=== PATIENT | male | born 1955 | race American Indian/Alaskan Native ===

== ENCOUNTER 2018-06-11 16:37 | Inpatient (IN) | payer OTHER ==
[2018-06-11 17:01] VITALS: BMI 22.4
[2018-06-11] MEDS ORDERED: SODIUM CHLORIDE 0.9% 1000 ML INFUS.BAG IV ONE (17:04)
[2018-06-11 17:09] LABS: PH,URINE 5.5 (4.5-8); URINE APPEARANCE Clear; URINE BILIRUBIN Negative (NEGATIVE); URINE COLOR Yellow; URINE GLUCOSE (UA) Negative (NEGATIVE); URINE KETONE Trace (NEGATIVE); URINE LEUK ESTERASE TRACE (NEGATIVE); URINE NITRITE Negative (NEGATIVE); URINE PROTEIN Trace (NEGATIVE); URINE UROBILINOGEN 0.2 (0.2-1.0)
--- NOTE | 2018-06-11 17:16 | PDOC ---
History of Present Illness - General History Source: Patient Exam Limitations: No Limitations - History of Present Illness Initial Comments: 06/11/18 17:27 The patient is a 63 year old male, with no significant PMH, who presents to the emergency department with right flank pain that began yesterday. The patient states constant sharp pain began in the right lower quadrant that radiates to the right flank, no relief with Motrin. The patient states he endorses associated symptoms of nausea and subjective fever. The patient reports sciatica in 2010 and mentions he had a kidney stone many years ago. The patient denies any abdominal surgery. The patient denies chest pain, shortness of breath, headache and dizziness. Denies chills vomit, diarrhea and constipation.Denies dysuria, frequency, urgency and hematuria. Allergies: NKDA Past surgical history: None reported Social history: None reported PCP: Marco Rogers <Tanya France - Last Filed: 06/11/18 17:27> - General History Source: Patient Exam Limitations: No Limitations <Shea Pineda - Last Filed: 06/11/18 19:25> <Gisselle Heard - Last Filed: 06/11/18 22:55> - General Chief Complaint: Pain Stated Complaint: RIGHT FLANK PAIN Time Seen by Provider: 06/11/18 16:50 Past History <Tanya France - Last Filed: 06/11/18 17:27> - Past Medical History COPD: No Kidney Stones: Yes - Suicide/Smoking/Psychosocial Hx Smoking History: Never smoked Hx Alcohol Use: No Drug/Substance Use Hx: No Substance Use Type: None <Shea Pineda - Last Filed: 06/11/18 19:25> <Gisselle Heard - Last Filed: 06/11/18 22:55> - Past Medical History Allergies/Adverse Reactions: Allergies Allergy/AdvReac Type Severity Reaction Status Date / Time No Known Allergies Allergy Verified 06/11/18 16:39 Home Medications: Ambulatory Orders Ibuprofen [Advil -] 200 mg PO ONCE 06/11/18 Review of Systems - Review of Systems Able to Perform ROS?: Yes Comments:: 06/11/18 17:29 GENERAL/CONSTITUTIONAL: No fever or chills. No weakness. HEAD, EYES, EARS, NOSE AND THROAT: No change in vision. No ear pain or discharge. No sore throat. CARDIOVASCULAR: No chest pain or shortness of breath. RESPIRATORY: No cough, wheezing, or hemoptysis. GASTROINTESTINAL:+RLQ pain. GENITOURINARY: No dysuria, frequency, or change in urination. MUSCULOSKELETAL: +Right flank pain. SKIN: No rash NEUROLOGIC: No headache, vertigo, loss of consciousness, or change in strength/ sensation. ENDOCRINE: No increased thirst. No abnormal weight change. HEMATOLOGIC/LYMPHATIC: No anemia, easy bleeding, or history of blood clots. ALLERGIC/IMMUNOLOGIC: No hives or skin allergy. <Tanya France - Last Filed: 06/11/18 17:27> *Physical Exam - Vital Signs Last Vital Signs Temp Pulse Resp BP Pulse Ox 98.7 F 58 L 15 98/67 100 06/11/18 16:38 06/11/18 16:38 06/11/18 16:38 06/11/18 16:38 06/11/18 16:38 - Physical Exam Comments: 06/11/18 17:31 GENERAL: Awake, alert, and fully oriented, in no acute distress HEAD: No signs of trauma EYES: PERRLA, EOMI, sclera anicteric, conjunctiva clear ENT: Auricles normal inspection, hearing grossly normal, nares patent, oropharynx clear without exudates. Moist mucosa NECK: Normal ROM, supple, no lymphadenopathy, JVD, or masses LUNGS: Breath sounds equal, clear to auscultation bilaterally. No wheezes, and no crackles HEART: Regular rate and rhythm, normal S1 and S2, no murmurs, rubs or gallops ABDOMEN: +RLQ pain and CVA tenderness. EXTREMITIES: Normal range of motion, no edema. No clubbing or cyanosis. No cords, erythema, or tenderness NEUROLOGICAL: Cranial nerves II through XII grossly intact. Normal speech, normal gait SKIN: Warm, Dry, normal turgor, no rashes or lesions noted. <Tanya France - Last Filed: 06/11/18 17:27> - Vital Signs Last Vital Signs Temp Pulse Resp BP Pulse Ox 98.7 F 58 L 15 98/67 100 06/11/18 16:38 06/11/18 16:38 06/11/18 16:38 06/11/18 16:38 06/11/18 16:38 <Cirilli,Shea - Last Filed: 06/11/18 19:25> - Vital Signs Last Vital Signs Temp Pulse Resp BP Pulse Ox 98.7 F 58 L 15 98/67 100 06/11/18 16:38 06/11/18 16:38 06/11/18 16:38 06/11/18 16:38 06/11/18 16:38 <Gisselle Heard - Last Filed: 06/11/18 22:55> ED Treatment Course - ADDITIONAL ORDERS Additional order review: Laboratory Results 06/11/18 16:50 Urine Color Yellow Urine Appearance Clear Urine pH 5.5 Ur Specific [place] 1.025 Urine Protein Trace Urine Glucose (UA) Negative Urine Ketones Trace Urine Blood 3+ H Urine Nitrite Negative Urine Bilirubin Negative Urine Urobilinogen 0.2 Ur Leukocyte Esterase Trace H <Tanya France - Last Filed: 06/11/18 17:27> - LABORATORY CBC & Chemistry Diagram: 06/11/18 17:40 06/11/18 17:40 - ADDITIONAL ORDERS Additional order review: Laboratory Results 06/11/18 16:50 Urine Color Yellow Urine Appearance Clear Urine pH 5.5 Ur Specific [place] 1.025 Urine Protein Trace Urine Glucose (UA) Negative Urine Ketones Trace Urine Blood 3+ H Urine Nitrite Negative Urine Bilirubin Negative Urine Urobilinogen 0.2 Ur Leukocyte Esterase Trace H - RADIOLOGY Radiology Studies Ordered: Category Date Time Status SPIRAL- RENAL-STONE CT [CT] Stat CT Scan 06/11/18 17:04 Ordered <Shea Pineda - Last Filed: 06/11/18 19:25> - LABORATORY CBC & Chemistry Diagram: 06/11/18 17:40 06/11/18 17:40 - ADDITIONAL ORDERS Additional order review: Laboratory Results 06/11/18 06/11/18 17:40 16:50 Sodium 136 Potassium 3.8 Chloride 101 Carbon Dioxide 27 Anion Gap 8 BUN 17 Creatinine 1.5 H Creat Clearance w eGFR 47.12 Random Glucose 90 Calcium 8.7 Total Bilirubin 0.7 AST 20 ALT 14 Alkaline Phosphatase 63 Total Protein 6.0 L Albumin 3.7 Urine Color Yellow Urine Appearance Clear Urine pH 5.5 Ur Specific [place] 1.025 Urine Protein Trace Urine Glucose (UA) Negative Urine Ketones Trace Urine Blood 3+ H Urine Nitrite Negative Urine Bilirubin Negative Urine Urobilinogen 0.2 Ur Leukocyte Esterase Trace H Urine RBC 10-20 Urine WBC 5-10 Ur Epithelial Cells Few 06/11/18 17:40 RBC 5.04 MCV 80.7 MCHC 32.2 RDW 12.7 MPV 10.1 Neutrophils % 69.6 Lymphocytes % 20.7 Monocytes % 8.0 Eosinophils % 1.2 Basophils % 0.5 - Medications Given in the ED: ED Medications Discontinued Medications Generic Name Dose Route Start Last Admin Trade Name Krystian PRN Reason Stop Dose Admin Ketorolac Tromethamine 15 mg 06/11/18 17:41 06/11/18 17:45 Toradol Injection - IVPUSH 06/11/18 17:42 15 mg ONCE ONE Administration Sodium Chloride 1,000 ml 06/11/18 17:04 06/11/18 17:40 Normal Saline - IV 06/11/18 17:05 1,000 ml ONCE ONE Administration <Gisselle Heard - Last Filed: 06/11/18 22:55> Medical Decision Making - Medical Decision Making 06/11/18 17:15 63 yo male with h/o renal colic her today with c/o right flank pain radiating to groin and rlq. no hematuria or dysuria. differential renal colic, uti pyelo. appendix less likely on character of his pain. plan ct a/p labs ua ivf. pt declined pain medicine currently took motrin earlier to day. <Shea Pineda - Last Filed: 06/11/18 19:25> - Medical Decision Making 06/11/18 19:49 Patient Name: GERALDO CALDERON THIS IS A PRELIMINARY REPORT FROM [facility] EXAM: CT abdomen and pelvis without contrast IMAGES:[id number] DATE OF EXAM: 2018-06-11 18:19:00 REASON FOR EXAM: Right flank pain COMPARISON: None Findings: Atelectasis and scarring are noted in the lung bases. No pleural effusions. There is a small hiatal hernia. There is questionable subtle gallbladder wall edema. The liver, pancreas, adrenal glands, and spleen are grossly unremarkable. *Mild right hydronephrosis due to a 10 mm x 7 mm x 11 mm calculus in the proximal right ureter at the level of L3. A few tiny right intrarenal calculi. No AAA. No evidence for diverticulitis, appendicitis, small bowel obstruction, free fluid, or free air. Small left inguinal hernia containing fat. Mild prostate enlargement. 06/11/18 22:55 Pt admitted to the hospitalist, who covers PMD [place]. <Gisselle Heard - Last Filed: 06/11/18 22:55> *DC/Admit/Observation/Transfer - Attestations Scribe Attestion: 06/11/18 17:34 Documentation prepared by Tanya France, acting as senior medical billing specialist for Shea Pineda MD. <Tanya France - Last Filed: 06/11/18 17:27> <Shea Pineda - Last Filed: 06/11/18 19:25> - Discharge Dispostion Decision to Admit order: Yes <Gisselle Heard - Last Filed: 06/11/18 22:55> Diagnosis at time of Disposition: Hydroureter, Renal insufficiency, Kidney stone on right side - Discharge Dispostion Condition at time of disposition: Guarded
[2018-06-11] MEDS ORDERED: KETOROLAC TROMETHAMINE 15 MG/ML VIAL IVPUSH ONE (17:41)
[2018-06-11] MEDS ORDERED: KETOROLAC TROMETHAMINE 15 MG/ML VIAL ONE (17:44)
[2018-06-11 17:48] LABS: EPI CELLS FEW /HPF
[2018-06-11 18:01] LABS: BASO % 0.5 % (0-2.0); EOS % 1.2 % (0-4.5); HEMATOCRIT 40.7 % (35.4-49); HEMOGLOBIN 13.1 GM/dl (11.7-16.9); LYMPH % 20.7 % (8-40); MCHC 32.2 g/dl (32.0-35.9); MEAN CELL VOLUME 80.7 fl (80-96); MEAN PLT VOLUME 10.1 fl (7.5-11.1); NEUT % 69.6 % (42.8-82.8); PLATELET COUNT 160 K/MM3 (134-434); RBC 5.04 M/mm3 (4.00-5.60); RDW 12.7 % (11.9-15.9); WHITE BLOOD COUNT 8.8 K/mm3 (4.0-10.8)
[2018-06-11 18:16] LABS: ALBUMIN 3.7 g/dl (3.5-5.0); ALK PHOS 63 U/L (32-92); ANION GAP 8 MMOL/L (8-16); BILIRUBIN,TOTAL 0.7 mg/dl (0.2-1.0); BLOOD UREA NITROGEN 17 mg/dl (7-18); CALCIUM 8.7 mg/dl (8.4-10.2); CHLORIDE 101 mmol/L (98-107); CO2 27 mmol/L (22-28); CREATININE 1.5 mg/dl (0.6-1.3); GLUCOSE,RANDOM 90 mg/dl (74-106); POTASSIUM 3.8 mmol/L (3.5-5.1); SGOT/AST 20 U/L (10-42); SGPT/ALT 14 U/L (10-40); SODIUM 136 mmol/L (136-145)
--- NOTE | 2018-06-11 20:48 | HP ---
CHIEF COMPLAINT: Flank pain PCP: Marco HISTORY OF PRESENT ILLNESS: This is a 63 year old male with a significant past medical history of renal colic who presented to the ED with c/o right flank pain radiating to his RLQ/ groin area. He denies N/V/D. Pain resolved after toradol IV in ED. ER course was notable for: (1) CT with [id number] calculus R proximal ureter (2) WBC 8.8 (3) u/a with 3+ blood, 10-20 RBC, 5-10 WBC and tr leuk esterase Recent Travel: pt denies PAST MEDICAL HISTORY: renal colic, sciatic PAST SURGICAL HISTORY: pt denies Social History: Smoking: pt denies Alcohol: pt denies Drugs: pt denies Family History: mother [place] father with balance issues sister , lung [place] son , [place] Allergies No Known Allergies Allergy (Verified 06/11/18 16:39) HOME MEDICATIONS: 3 Medication Instructions Recorded Ibuprofen [Advil -] 200 mg PO ONCE 06/11/18 REVIEW OF SYSTEMS CONSTITUTIONAL: Absent: fever, chills, diaphoresis, generalized weakness, malaise, loss of appetite, weight change HEENT: Absent: rhinorrhea, nasal congestion, throat pain, throat swelling, difficulty swallowing, mouth swelling, ear pain, eye pain, visual changes CARDIOVASCULAR: Absent: chest pain, syncope, palpitations, irregular heart rate, lightheadedness , peripheral edema RESPIRATORY: Absent: cough, shortness of breath, dyspnea with exertion, orthopnea, wheezing, stridor, hemoptysis GASTROINTESTINAL: Present: RLQ abdominal pain Absent: abdominal distension, nausea, vomiting, diarrhea, constipation, melena, hematochezia GENITOURINARY: Present: flank pain Absent: dysuria, frequency, urgency, hesitancy, hematuria, genital pain MUSCULOSKELETAL: Absent: myalgia, arthralgia, joint swelling, back pain, neck pain SKIN: Absent: rash, itching, pallor HEMATOLOGIC/IMMUNOLOGIC: Absent: easy bleeding, easy bruising, lymphadenopathy, frequent infections ENDOCRINE: Absent: unexplained weight gain, unexplained weight loss, heat intolerance, cold intolerance NEUROLOGIC: Absent: headache, focal weakness or paresthesias, dizziness, unsteady gait, seizure, mental status changes, bladder or bowel incontinence PSYCHIATRIC: Absent: anxiety, depression, suicidal or homicidal ideation, hallucinations. PHYSICAL EXAMINATION Vital Signs - 24 hr 3 06/11/18 16:38 Temperature 98.7 F Pulse Rate 58 L Respiratory 15 Rate Blood Pressure 98/67 O2 Sat by Pulse 100 Oximetry (%) GENERAL: Awake, alert, and fully oriented, in no acute distress. HEAD: Normal with no signs of trauma. EYES: Pupils equal, round and reactive to light, extraocular movements intact, sclera anicteric, conjunctiva clear. No lid lag. EARS, NOSE, THROAT: Ears normal, nares patent, oropharynx clear without exudates. Moist mucous membranes. NECK: Normal range of motion, supple without lymphadenopathy, JVD, or masses. LUNGS: Breath sounds equal, clear to auscultation bilaterally. No wheezes, and no crackles. No accessory muscle use. HEART: Regular rate and rhythm, normal S1 and S2 without murmur, rub or gallop. ABDOMEN: Soft, nontender, not distended, normoactive bowel sounds, no guarding, no rebound, no masses. No hepatomegaly or splenomegaly. MUSCULOSKELETAL: Normal range of motion at all joints. No bony deformities or tenderness. No CVA tenderness. UPPER EXTREMITIES: 2+ pulses, warm, well-perfused. No cyanosis. No clubbing. No peripheral edema. LOWER EXTREMITIES: 2+ pulses, warm, well-perfused. No calf tenderness. No peripheral edema. NEUROLOGICAL: Cranial nerves II-XII intact. Normal speech. Normal gait. PSYCHIATRIC: Cooperative. Good eye contact. Appropriate mood and affect. SKIN: Warm, dry, normal turgor, no rashes or lesions noted, normal capillary refill. Laboratory Results - last 24 hr 3 06/11/18 06/11/18 06/11/18 16:50 17:40 17:40 WBC 8.8 RBC 5.04 Hgb 13.1 Hct 40.7 MCV 80.7 MCH 26.0 MCHC 32.2 RDW 12.7 Plt Count 160 MPV 10.1 Absolute Neuts (auto) 6.2 Neutrophils % 69.6 Lymphocytes % 20.7 Monocytes % 8.0 Eosinophils % 1.2 Basophils % 0.5 Sodium 136 Potassium 3.8 Chloride 101 Carbon Dioxide 27 Anion Gap 8 BUN 17 Creatinine 1.5 H Creat Clearance w eGFR 47.12 Random Glucose 90 Calcium 8.7 Total Bilirubin 0.7 AST 20 ALT 14 Alkaline Phosphatase 63 Total Protein 6.0 L Albumin 3.7 Urine Color Yellow Urine Appearance Clear Urine pH 5.5 Ur Specific [place] 1.025 Urine Protein Trace Urine Glucose (UA) Negative Urine Ketones Trace Urine Blood 3+ H Urine Nitrite Negative Urine Bilirubin Negative Urine Urobilinogen 0.2 Ur Leukocyte Esterase Trace H Urine RBC 10-20 Urine WBC 5-10 Ur Epithelial Cells Few Radiology Reports CT Abd/pelvis, w/o contrast DATE OF EXAM: 2018-06-11 18:19:00 REASON FOR EXAM: Right flank pain COMPARISON: None THIS IS A PRELIMINARY REPORT FROM [facility] Findings: Atelectasis and scarring are noted in the lung bases. No pleural effusions. There is a small hiatal hernia. There is questionable subtle gallbladder wall edema. The liver, pancreas, adrenal glands, and spleen are grossly unremarkable. *Mild right hydronephrosis due to a 10 mm x 7 mm x 11 mm calculus in the proximal right ureter at the level of L3. A few tiny right intrarenal calculi. No AAA. No evidence for diverticulitis, appendicitis, small bowel obstruction, free fluid, or free air. Small left inguinal hernia containing fat. Mild prostate enlargement. THIS DOCUMENT HAS BEEN ELECTRONICALLY SIGNED Anibal Santizo MD 06/11/2018 19:39 EST ASSESSMENT/PLAN: 63yM with PMH renal colic, sciatica presented to the ED with right flank and RLQ pain. Renal colic - 11mm, likely will not pass on its own - urology consult, will discuss with day [employer] in AM - defer further NSAID use given Cr 1.5 - oxycodone PRN probable RAFITA - unknown baseline Cr, but likely previously WNL given lack of medical problems - IVF given in ED, pt tolerating po, cont po - likely due to obstruction due to stone (mild R hydronephrosis) DVT PPX - fully ambulatory, anticipated LOS <48h, defer heparin FEN - tolerating po - BMP in am - regular diet as tolerated Dispo: Pt currently requires further observation for management of her emergent condition. Visit type - Emergency Visit Emergency Visit: Yes ED Registration Date: 06/11/18 Care time: The patient presented to the Emergency Department on the above date and was hospitalized for further evaluation of their emergent condition. - New Patient This patient is new to me today: Yes Date on this admission: 06/11/18 - Critical Care Critical Care patient: No
[2018-06-11] MEDS ORDERED: ACETAMINOPHEN 325 MG TABLET (FP) PO PRN (20:53)
[2018-06-11] MEDS ORDERED: oxyCODONE HCL 5 MG TABLET PO PRN (20:53)
[2018-06-12 08:31] LABS: ANION GAP 4 MMOL/L (8-16); BLOOD UREA NITROGEN 15 mg/dl (7-18); CALCIUM 8.4 mg/dl (8.4-10.2); CHLORIDE 107 mmol/L (98-107); CO2 27 mmol/L (22-28); CREATININE 1.3 mg/dl (0.6-1.3); GLUCOSE,RANDOM 94 mg/dl (74-106); MAGNESIUM 2.1 mg/dL (1.8-2.4); PHOSPHOROUS 3.5 mg/dl (2.5-4.6); POTASSIUM 4.3 mmol/L (3.5-5.1); SODIUM 138 mmol/L (136-145)
--- NOTE | 2018-06-12 08:41 | PN ---
Physical Exam: SUBJECTIVE: Patient seen and examined, patient denies any pain, tolerating diet OBJECTIVE: patient is a 63 y/o male with a past medical history of renal colic (20 years ago) and sciatica. Patient was admitted from the emergency department to observation for obstructive uropathy secondary to urethral calculi. Vital Signs Period Temp Pulse Resp BP Sys/Salazar Pulse Ox Last 24 Hr 98 F-98.7 F 58-67 15-18 98-110/62-69 98-100 GENERAL: The patient is awake, alert, and fully oriented, in no acute distress. HEAD: Normal with no signs of trauma. EYES: PERRL, extraocular movements intact, sclera anicteric, conjunctiva clear. No ptosis. ENT: Ears normal, nares patent, oropharynx clear without exudates, moist mucous membranes. NECK: Trachea midline, full range of motion, supple. LUNGS: Breath sounds equal, clear to auscultation bilaterally, no wheezes, no crackles, no accessory muscle use. HEART: Regular rate and rhythm, S1, S2 without murmur, rub or gallop. ABDOMEN: Soft, nontender, nondistended, normoactive bowel sounds, no guarding, no rebound, no hepatosplenomegaly, no masses. EXTREMITIES: 2+ pulses, warm, well-perfused, no edema. NEUROLOGICAL: Cranial nerves II through XII grossly intact. Normal speech, gait not observed. PSYCH: Normal mood, normal affect. SKIN: Warm, dry, normal turgor, no rashes or lesions noted Laboratory Results - last 24 hr CBC WBC 7.0 K/mm3 (4.0-10.0) 06/12/18 07:45 RBC 5.02 M/mm3 (4.00-5.60) 06/12/18 07:45 Hgb 12.7 GM/dL (11.7-16.9) 06/12/18 07:45 Hct 39.2 % (35.4-49) 06/12/18 07:45 MCV 78.1 fl (80-96) L 06/12/18 07:45 MCH 25.3 pg (25.7-33.7) L 06/12/18 07:45 MCHC 32.5 g/dl (32.0-35.9) 06/12/18 07:45 RDW 13.7 % (11.9-15.9) 06/12/18 07:45 Plt Count 141 K/MM3 (134-434) 06/12/18 07:45 MPV 10.1 fl (7.5-11.1) 06/12/18 07:45 Absolute Neuts (auto) 4.0 K/mm3 (1.5-8.0) 06/12/18 07:45 Neutrophils % 58.0 % (42.8-82.8) 06/12/18 07:45 Lymphocytes % 28.0 % (8-40) 06/12/18 07:45 Monocytes % 10.3 % (3.8-10.2) H 06/12/18 07:45 Eosinophils % 3.1 % (0-4.5) 06/12/18 07:45 Basophils % 0.6 % (0-2.0) 06/12/18 07:45 Nucleated RBC % 0 % (0-0) 06/12/18 07:45 CMP Sodium 138 mmol/L (136-145) 06/12/18 07:45 Potassium 4.3 mmol/L (3.5-5.1) 06/12/18 07:45 Chloride 107 mmol/L (98-107) 06/12/18 07:45 Carbon Dioxide 27 mmol/L (22-28) 06/12/18 07:45 Anion Gap 4 MMOL/L (8-16) L 06/12/18 07:45 BUN 15 mg/dl (7-18) 06/12/18 07:45 Creatinine 1.3 mg/dl (0.6-1.3) 06/12/18 07:45 Creat Clearance w eGFR 55.58 (>60) 06/12/18 07:45 Random Glucose 94 mg/dl (74-106) 06/12/18 07:45 Calcium 8.4 mg/dl (8.4-10.2) 06/12/18 07:45 Phosphorus 3.5 mg/dl (2.5-4.6) 06/12/18 07:45 Magnesium 2.1 mg/dL (1.8-2.4) 06/12/18 07:45 Total Bilirubin 0.7 mg/dl (0.2-1.0) 06/11/18 17:40 AST 20 U/L (10-42) 06/11/18 17:40 ALT 14 U/L (10-40) 06/11/18 17:40 Alkaline Phosphatase 63 U/L (32-92) 06/11/18 17:40 Total Protein 6.0 g/dl (6.4-8.3) L 06/11/18 17:40 Albumin 3.7 g/dl (3.5-5.0) 06/11/18 17:40 Active Medications Generic Name Dose Route Start Last Admin Trade Name Freq PRN Reason Stop Dose Admin Acetaminophen 650 mg 06/11/18 20:53 Tylenol - PO Q4H PRN PAIN LEVEL 1-5 Oxycodone HCl 5 mg 06/11/18 20:53 Roxicodone - PO Q4H PRN PAIN LEVEL 6-[address] scan of abd/pelvis: 1cm right proximal uretral calculs with moderate hydronephrosis ASSESSMENT/PLAN: 1) obstructive uropathy secondary to calculus moderate hydronephrosis - continue ivf, strain all urine - start empirc abx, rocephin pending urine culture - prn pain medication - creatine trending downward, close following - appreciate urology input DVT PPX - fully ambulatory, anticipated LOS <48h, defer heparin FEN - tolerating po - BMP in am - regular diet as tolerated Dispo: Pt currently requires further observation for management of her emergent condition. Visit type - Emergency Visit Emergency Visit: Yes ED Registration Date: 06/14/18 Care time: The patient presented to the Emergency Department on the above date and was hospitalized for further evaluation of their emergent condition. - New Patient This patient is new to me today: No - Critical Care Critical Care patient: No - Discharge Referral Referred to [facility] No
[2018-06-12 09:16] LABS: BASO % 0.6 % (0-2.0); EOS % 3.1 % (0-4.5); HEMATOCRIT 39.2 % (35.4-49); HEMOGLOBIN 12.7 GM/dL (11.7-16.9); MCH 25.3 pg (25.7-33.7); MCHC 32.5 g/dl (32.0-35.9); MEAN CELL VOLUME 78.1 fl (80-96); MEAN PLT VOLUME 10.1 fl (7.5-11.1); MONO % 10.3 % (3.8-10.2); PLATELET COUNT 141 K/MM3 (134-434); RBC 5.02 M/mm3 (4.00-5.60); RDW 13.7 % (11.9-15.9)
[2018-06-12] MEDS: SODIUM CHLORIDE 1,000 ML IV SCH (09:59)
[2018-06-12] MEDS ORDERED: TAMSULOSIN HCL 0.4 MG CAP PO ONE (12:00)
[2018-06-12] MEDS: CEFTRIAXONE 1 GM/50 ML BAG IVPB SCH (15:29)
--- NOTE | 2018-06-12 17:21 | CON.GU ---
Consult Consult Specialty:: urology Reason for Consultation:: right ureteral stone with JADE and hydronephrosis with colic - History of Present Illness Chief Complaint: right ureteral stone History of Present Illness: Patient is a 63 year old male with history of urolithiasis who developed right colic. Patient also had significant nausea. Patient denies fever of chills, dysuria, or gross hematuria. - History Source History Provided By: Patient, Medical Record Limitations to Obtaining History: No Limitations - Alcohol/Substance Use Hx Alcohol Use: No - Smoking History Smoking history: Never smoked Home Medications - Allergies Allergies/Adverse Reactions: Allergies Allergy/AdvReac Type Severity Reaction Status Date / Time No Known Allergies Allergy Verified 06/11/18 16:39 - Home Medications Home Medications: Ambulatory Orders Ibuprofen [Advil -] 200 mg PO ONCE 06/11/18 Physical Exam- Vital Signs: Vital Signs Temperature 98.3 F 06/12/18 14:00 Pulse Rate 91 H 06/12/18 14:00 Respiratory Rate 18 06/12/18 14:00 Blood Pressure 103/66 06/12/18 14:00 O2 Sat by Pulse Oximetry (%) 96 06/12/18 14:00 Constitutional: Yes: Well Nourished, No Distress, Calm Eyes: Yes: WNL, Conjunctiva Clear, EOM Intact HENT: Yes: WNL, Atraumatic, Normocephalic Neck: Yes: WNL, Supple, Trachea Midline Cardiovascular: Yes: WNL, Regular Rate and Rhythm Respiratory: Yes: WNL, Regular Gastrointestinal: Yes: Normal Bowel Sounds, Soft Renal/: Yes: CVA Tenderness - Right Kidneys: Yes: FLank Pain Right Pelvis: Yes: WNL, Bladder Non Palpable Testicles: Yes: WNL Scrotum: Yes: WNL Penis: Yes: WNL Prostate Exam: Yes: Asymmetrical Musculoskeletal: Yes: WNL Extremities: Yes: WNL Labs: CBC, BMP 06/12/18 07:45 06/12/18 07:45 Imaging - Results Cat Scan: Report Reviewed Assessment/Plan impression right sided renal colic acute renal insufficiency right ureteral stone with hydronephrosis plan will schedule a right ureteroscopic laser lithotripsy thank you for the consultation 25 minutes devoted to patient care discussed with patient's daughter who is an OR nurse in [facility] [place]
[2018-06-13 08:25] LABS: BASO % 0.5 % (0-2.0); EOS % 3.4 % (0-4.5); HEMATOCRIT 38.1 % (35.4-49); HEMOGLOBIN 12.9 GM/dl (11.7-16.9); LYMPH % 23.3 % (8-40); MCH 27.1 pg (25.7-33.7); MCHC 33.8 g/dl (32.0-35.9); MEAN CELL VOLUME 80.3 fl (80-96); MEAN PLT VOLUME 10.6 fl (7.5-11.1); NEUT % 63.8 % (42.8-82.8); PLATELET COUNT 168 K/MM3 (134-434); RBC 4.74 M/mm3 (4.00-5.60); RDW 12.8 % (11.9-15.9); WHITE BLOOD COUNT 7.3 K/mm3 (4.0-10.8)
[2018-06-13] MEDS ORDERED: TAMSULOSIN HCL 0.4 MG CAP PO SCH (08:30)
[2018-06-13 08:35] LABS: ALBUMIN 3.2 g/dl (3.5-5.0); ALK PHOS 61 U/L (32-92); ANION GAP 1 MMOL/L (8-16); BILIRUBIN,TOTAL 0.8 mg/dl (0.2-1.0); BLOOD UREA NITROGEN 10 mg/dl (7-18); CALCIUM 8.2 mg/dl (8.4-10.2); CHLORIDE 110 mmol/L (98-107); CO2 25 mmol/L (22-28); CREATININE 1.1 mg/dl (0.6-1.3); GLUCOSE,RANDOM 103 mg/dl (74-106); MAGNESIUM 1.9 mg/dL (1.8-2.4); PHOSPHOROUS 3.3 mg/dl (2.5-4.6); POTASSIUM 4.1 mmol/L (3.5-5.1); SGOT/AST 14 U/L (10-42); SGPT/ALT 13 U/L (10-40); SODIUM 136 mmol/L (136-145); TOT PROT 5.4 g/dl (6.4-8.3)
[2018-06-13] MEDS: SODIUM CHLORIDE 1,000 ML IV SCH ×2 (09:54→23:30)
[2018-06-13] MEDS: CEFTRIAXONE 1 GM/50 ML BAG IVPB SCH (09:54)
--- NOTE | 2018-06-13 10:49 | PN ---
Physical Exam: SUBJECTIVE: Patient seen and examined, reports mild right flank pain, Patient denies any tactile fever, patient is awaiting lithotripsy today at [address] Nichols OBJECTIVE: patient is a 63 y/o male with a past medical history of renal colic (20 years ago) and sciatica. Patient was admitted from the emergency department to observation for obstructive uropathy secondary to urethral calculi. Vital Signs Period Temp Pulse Resp BP Sys/Salazar Pulse Ox Last 24 Hr 98.2 F-98.7 F 78-106 17-18 95-115/52-67 96-98 GENERAL: The patient is awake, alert, and fully oriented, in no acute distress. HEAD: Normal with no signs of trauma. EYES: PERRL, extraocular movements intact, sclera anicteric, conjunctiva clear. No ptosis. ENT: Ears normal, nares patent, oropharynx clear without exudates, moist mucous membranes. NECK: Trachea midline, full range of motion, supple. LUNGS: Breath sounds equal, clear to auscultation bilaterally, no wheezes, no crackles, no accessory muscle use. HEART: Regular rate and rhythm, S1, S2 without murmur, rub or gallop. ABDOMEN: + right cva tenderness, Soft, nontender, nondistended, normoactive bowel sounds, no guarding, no rebound, no hepatosplenomegaly, no masses. EXTREMITIES: 2+ pulses, warm, well-perfused, no edema. NEUROLOGICAL: Cranial nerves II through XII grossly intact. Normal speech, gait not observed. PSYCH: Normal mood, normal affect. SKIN: Warm, dry, normal turgor, no rashes or lesions noted Laboratory Results - last 24 hr 06/13/18 06/13/18 07:54 07:54 WBC 7.3 RBC 4.74 Hgb 12.9 Hct 38.1 MCV 80.3 MCH 27.1 MCHC 33.8 RDW 12.8 Plt Count 168 MPV 10.6 Absolute Neuts (auto) 4.7 Neutrophils % 63.8 Lymphocytes % 23.3 Monocytes % 9.0 Eosinophils % 3.4 D Basophils % 0.5 Sodium 136 Potassium 4.1 Chloride 110 H Carbon Dioxide 25 Anion Gap 1 L BUN 10 Creatinine 1.1 Creat Clearance w eGFR > 60 Random Glucose 103 Calcium 8.2 L Phosphorus 3.3 Magnesium 1.9 Total Bilirubin 0.8 AST 14 D ALT 13 Alkaline Phosphatase 61 Total Protein 5.4 L Albumin 3.2 L Active Medications Generic Name Dose Route Start Last Admin Trade Name Krystian PRN Reason Stop Dose Admin Acetaminophen 650 mg 06/11/18 20:53 Tylenol - PO Q4H PRN PAIN LEVEL 1-5 Sodium Chloride 1,000 mls @ 83 mls/hr 06/12/18 09:30 06/13/18 09:54 Normal Saline - IV 83 mls/hr ASDIR LITZY Administration Ceftriaxone Sodium 1 gm in 50 mls @ 100 mls/hr 06/12/18 12:00 06/13/18 09:54 Rocephin 1gm Ivpb (Pre-Docked) IVPB 06/13/18 11:59 100 mls/hr DAILY LITZY Administration Protocol Oxycodone HCl 5 mg 06/11/18 20:53 06/13/18 05:35 Roxicodone - PO 5 mg Q4H PRN Administration PAIN LEVEL 6-10 Tamsulosin HCl 0.4 mg 06/13/18 08:30 06/13/18 08:06 Flomax - PO 0.4 mg DAILY@0830 LITZY Administration Microbiology 06/11/18 16:55 Urine - Urine Clean Catch Urine Culture - Preliminary Lactose Fermenting Neg Bacilli Group D Strep Or Entero Coccus IMAGING ct scan of abd/pelvis: 1cm right proximal uretral calculs with moderate hydronephrosis ASSESSMENT/PLAN: 1) obstructive uropathy secondary to calculus moderate hydronephrosis - NPO continue ivf, strain all urine - continue empirc abx patient is pending instrumentation, urine culture is prelim + e - prn pain medication - creatine trending downward, close following -urology consulted and following DVT PPX - fully ambulatory, anticipated LOS <48h, defer heparin FEN -ivf replete electrolytes prn Dispo: Pt currently requires further observation for management of her emergent condition. Visit type - Emergency Visit Emergency Visit: Yes ED Registration Date: 06/14/18 Care time: The patient presented to the Emergency Department on the above date and was hospitalized for further evaluation of their emergent condition. - New Patient This patient is new to me today: No - Critical Care Critical Care patient: No - Discharge Referral Referred to [facility] Med P.C.: No
[2018-06-13] MEDS ORDERED: PROPOFOL 20 ML ONE (17:32)
[2018-06-13] MEDS ORDERED: MIDAZOLAM HCL 2 MG/2 ML SINGLE DOSE VIAL ONE (17:32)
[2018-06-13] MEDS ORDERED: LIDOCAINE HCL/PF 2% SDV 5ML VIAL ONE (17:33)
--- NOTE | 2018-06-13 17:42 | EKG ---
Test Reason : Blood Pressure : / mmHG Vent. Rate : 077 BPM Atrial Rate : 077 BPM P-R Int : 152 ms QRS Dur : 084 ms QT Int : 358 ms P-R-T Axes : 044 -37 020 degrees QTc Int : 405 ms POOR DATA QUALITY, INTERPRETATION MAY BE ADVERSELY AFFECTED NORMAL SINUS RHYTHM LEFT AXIS DEVIATION ABNORMAL ECG NO PREVIOUS ECGS AVAILABLE Confirmed by Stephen Hernandez MD ([id number]) on 06/13/2018 5:41:27 PM Referred By: JOSESITO Confirmed By:Stephen Hernandez MD
[2018-06-13] MEDS ORDERED: DEXAMETHASONE SOD PHOSPHATE 4 MG/1 ML VIAL ONE (18:07)
[2018-06-13] MEDS ORDERED: KETOROLAC TROMETHAMINE 30 MG/1 ML VIAL ONE (18:24)
[2018-06-13] MEDS ORDERED: GENTAMICIN SO4 80 MG/2 ML VIAL ONE (18:28)
[2018-06-13] MEDS ORDERED: GENTAMICIN SO4 80 MG/2 ML VIAL IVPB ONE (18:29)
--- NOTE | 2018-06-13 19:16 | OP ---
Operative Note - Note: Operative Date: 06/13/18 Pre-Operative Diagnosis: right 10+ mm ureteral stone Operation: cystoscopy; right retrograde pyelogram; right ureterscopic laser lithotripsy; right ureteral stent exchange Findings: 10 mm plus proximal ureteral stone Post-Operative Diagnosis: Same as Pre-op Surgeon: Leoncio Nichols Anesthesia: General Drains & Tubes with Location: 02/12 stent
[2018-06-13] MEDS ORDERED: ONDANSETRON 4 MG/2 ML VIAL IVPUSH PRN (19:27)
[2018-06-13] MEDS ORDERED: LACTATED RINGERS SOLUTION 1,000 ML IV SCH (19:30)
--- NOTE | 2018-06-13 19:57 | OP ---
DATE OF OPERATION: 06/13/2018 PREOPERATIVE DIAGNOSIS: Right proximal 10+ mm ureteral stone. POSTOPERATIVE DIAGNOSIS: Right proximal 10+ mm ureteral stone. PROCEDURE: Cystoscopy, right retrograde pyelogram, right ureteroscopic laser lithotripsy, right ureteral stent placement. ATTENDING: Philomena Mahoney MD ANESTHESIA: General. DESCRIPTION OF OPERATION: The patient was brought in the operating room, placed in supine position on the operating room table. Anesthesia and preoperative antibiotics were administered. Levaquin and gentamicin were both given. The patient was then placed in the dorsal lithotomy position and prepped and draped in the usual sterile manner. Cystoscopy was performed, and the bladder was investigated. No evidence of stones or neoplasm within the bladder was noted. A retrograde pyelogram was performed which showed a proximal filling defect measuring 10+ mm. A wire was passed into the collecting system without difficulty. The patient then had a rigid ureteroscope placed. Rigid ureteroscopy could not access the stone adequately to visualize and perform laser lithotripsy. A flexible ureteroscope was then utilized. A Navigator with a sheath was placed under fluoroscopic visualization. A second wire was then positioned through the Navigator. At this point, a flexible ureteroscope was utilized. The ureteroscope was taken to the level of the stone. Under direct vision, the stone was fragmented. Once fragmentation had started, the stone migrated with the force of the water pressure. At this point, visualization was poor. The ureter was edematous and friable with bleeding. There was mild extravasation of contrast at this point. It was decided to remove the Navigator and the ureteroscope at this point, and a stent was placed utilizing Seldinger technique. The first stent that was placed appeared to be out of the kidney. A second wire was then placed alongside the stent. An open-ended catheter was placed over the wire, and a repeat retrograde pyelogram was performed. The retrograde pyelogram was within the collecting system of the kidney. With this wire adequately located within the kidney, the other stent was removed. A second stent was then placed over the new wire. The position appeared adequate. No evidence of further extravasation was noted. The patient tolerated the procedure very well. The disposition of the patient is to the recovery room. The patient will be observed overnight and seen in the morning in order to adequately ensure that the patient's stent is in good position. PHILOMENA MAHONEY M.D. [id number]
[2018-06-13] MEDS ORDERED: ACETAMINOPHEN 325 MG TABLET (FP) PO PRN (20:16)
[2018-06-13] MEDS: oxyCODONE HCL 5 MG TABLET PO PRN (23:16)
[2018-06-14] MEDS: oxyCODONE HCL 5 MG TABLET PO PRN (04:13)
[2018-06-14] MEDS: SODIUM CHLORIDE 1,000 ML IV SCH ×2 (05:25→07:54)
[2018-06-14 07:57] VITALS: BP 119/83; PULSE 86; TEMP 97.7
--- NOTE | 2018-06-14 08:20 | CONSULT ---
Consult - text type - Consultation Consultation Note: CC: s/p right ureteroscopic laser lithotripsy and stent placement HPI: Patient is doing well s/p right ureteral stent placement. Complains of flank pain while voiding. Has improving hematuria. Denies nausea, vomiting, fever, or chills. PE abd-soft, non-tender; mild right CVAT imp right ureteral stone s/p stent plan urologically cleared for discharge on levaquin 500mg daily x7 days motrin/advil/tylenol for pain
[2018-06-14] MEDS ORDERED: TAMSULOSIN HCL 0.4 MG CAP PO SCH (08:30)
--- NOTE | 2018-06-14 09:24 | DS ---
Physical Exam: SUBJECTIVE: Patient seen and examined OBJECTIVE: Vital Signs Period Temp Pulse Resp BP Sys/Salazar Pulse Ox Last 24 Hr 97.6 F-99.8 F 86-108 14-20 106-139/73-96 94-100 PHYSICAL EXAM GENERAL: The patient is awake, alert, and fully oriented, in no acute distress. HEAD: Normal with no signs of trauma. EYES: PERRL, extraocular movements intact, sclera anicteric, conjunctiva clear. ENT: Ears normal, nares patent, oropharynx clear without exudates, moist mucous membranes. NECK: Trachea midline, full range of motion, supple. LUNGS: Breath sounds equal, clear to auscultation bilaterally, no wheezes, no crackles, no accessory muscle use. HEART: Regular rate and rhythm, S1, S2 without murmur, rub or gallop. ABDOMEN: Soft, nontender, nondistended, normoactive bowel sounds, no guarding, no rebound, no hepatosplenomegaly, no masses. EXTREMITIES: 2+ pulses, warm, well-perfused, no edema. NEUROLOGICAL: Cranial nerves II through XII grossly intact. Normal speech, gait not observed. PSYCH: Normal mood, normal affect. SKIN: Warm, dry, normal turgor, no rashes or lesions noted. LABS HOSPITAL COURSE: Date of Admission:06/14/18 Date of Discharge: 06/14/18 Minutes to complete discharge: 35 Discharge Summary Reason For Visit: RIGHT FLANK PAIN Current Active Problems Hydroureter (Acute) Kidney stone on right side (Acute) Renal insufficiency (Acute) Condition: Improved - Instructions Diet, Activity, Other Instructions: A prescription has been sent to your pharmacy for levofloxacin which is an antibiotic. Take this medication as directed and be sure to finish all the medication. While you are taking levofloxacin avoid strenous exercise or impact sports. Levofloxacin can lead to tendonitis and tendon rupture. It is important to stay well-hydrated. Drink plenty of fluids. You should follow up with Dr. López Fleming in two weeks. Referrals: Sue Lara MD [Primary Care Provider] - Leoncio Nichols MD [Staff Physician] - 2 Weeks Disposition: HOME - Home Medications Comprehensive Discharge Medication List: Ambulatory Orders Levofloxacin [Levaquin] 500 mg PO DAILY #6 tablet 06/14/18 This patient is new to me today: Yes Date on this admission: 06/14/18 Emergency Visit: Yes ED Registration Date: 06/14/18 Care time: The patient presented to the Emergency Department on the above date and was hospitalized for further evaluation of their emergent condition. Critical Care patient: No - Discharge Referral Referred to [facility] Med P.C.: No
--- NOTE | 2018-06-14 10:59 | PN ---
Progress Note (short form) - Note Progress Note: Anesthesia POD#1 S/P Cysto Right Ureteral Stent Placement under GA Vss,no N/V,mild soreness. Going home today. Casandra Corley MD.
== END 2018-06-14 11:23 | disposition home or self-care (01) | DRG 661 ==
LOC: FER 16:37 → FM/S 19:46 → JSAMEDAYSX 06-13 16:06 → J5S 06-13 21:36 → OBSVTOIN 06-14 08:56
PROVIDERS: ADMIT Internal Medicine; ATTEND Nurse Practitioner Acute Care
PROC: 0TC68ZZ Extirpation of Matter from Right Ureter, Via Natural or Artificial Opening Endoscopic (ICD-10-PCS; principal; 2018-06-13 17:30)
PROC: 0T768DZ Dilation of Right Ureter with Intraluminal Device, Via Natural or Artificial Opening Endoscopic (ICD-10-PCS; 2018-06-13 17:30)
PROC: BT1DZZZ Fluoroscopy of Right Kidney, Ureter and Bladder (ICD-10-PCS; 2018-06-13 17:30)
DX: N13.2 Hydronephrosis with renal and ureteral calculous obstruction (principal); N28.9 Disorder of kidney and ureter, unspecified
CPT/HCPCS: 36415; 74176; 80048; 80053; 81003; 81015; 83735; 84100; 85025; 87086; 87186; 93005; 94760; 99284-25; G0378; J7030

== ENCOUNTER 2018-06-26 06:22 | Day surgery (SDC) | payer OTHER ==
[2018-06-23 16:35] VITALS: BMI 22.8
[2018-06-26] MEDS ORDERED: MIDAZOLAM HCL 2 MG/2 ML SINGLE DOSE VIAL ONE (07:28)
[2018-06-26] MEDS ORDERED: LIDOCAINE HCL/PF 2% SDV 5ML VIAL ONE (07:37)
[2018-06-26] MEDS ORDERED: PROPOFOL 20 ML ONE (07:37)
--- NOTE | 2018-06-26 09:35 | OP ---
Operative Note - Note: Operative Date: 06/26/18 Pre-Operative Diagnosis: Right Ureter stone Operation: Right ureter ESWL Findings: 7mm Right ureter proximal part Post-Operative Diagnosis: Same as Pre-op Surgeon: Leoncio Nichols Anesthesia: Fractional Estimated Blood Loss (mls): 0 Drains & Tubes with Location: Right JJ stent Operative Report Dictated: Yes
[2018-06-26 10:52] VITALS: BP 116/73; PULSE 80; TEMP 97.6
--- NOTE | 2018-06-26 22:48 | OP ---
DATE OF OPERATION: 06/26/2018 PREOPERATIVE DIAGNOSIS: Right renal stone. POSTOPERATIVE DIAGNOSIS: Stone at right proximal ureter measuring 7 mm. ATTENDING: Philomena Nichols M.D. ANESTHESIA: Fractional. OPERATION: Right extracorporeal shockwave lithotripsy. DESCRIPTION OF PROCEDURE: Patient was brought in the operating room, placed in a supine position on the operating room table. The patient has a history of a right ureteral stone status post a right ureteroscopic laser lithotripsy. The patient underwent fluoroscopy and ultrasonography. A 7-mm stone at the right UPJ and proximal ureter is identified. The stent is in good position. With the stone identified, antibiotics anesthesia was administered. Shockwave lithotripsy is then performed. 3000 impulses at 20 joules of power were administered to the stone with excellent fragmentation. The patient will require removal of the stent under anesthesia in order to insure that the patient did indeed pass the fragments. The patient will be followed up in the office setting. No complications noted. DISPOSITION: To recovery room. PHILOMENA MAHONEY M.D. [id number]
== END 2018-06-26 12:34 | disposition home or self-care (01) ==
LOC: JASU-SURG 06:22
PROVIDERS: ATTEND Urology
PROC: 0TF3XZZ Fragmentation in Right Kidney Pelvis, External Approach (ICD-10-PCS; principal; 2018-06-26 08:00)
DX: N20.0 Calculus of kidney (principal)

== ENCOUNTER 2018-07-17 06:21 | Day surgery (SDC) | payer OTHER ==
[2018-07-11 09:04] VITALS: BMI 22.4
[2018-07-17] MEDS ORDERED: MIDAZOLAM HCL 2 MG/2 ML SINGLE DOSE VIAL ONE (07:25)
[2018-07-17] MEDS ORDERED: PROPOFOL 20 ML ONE (07:25)
[2018-07-17] MEDS ORDERED: SUCCINYLCHOLINE CHLORIDE 200 MG/10 ML VIAL ONE (07:25)
--- NOTE | 2018-07-17 09:27 | OP ---
Operative Note - Note: Operative Date: 07/17/18 Pre-Operative Diagnosis: right ureteral stone Operation: cystoscopy/right retrograde pyelogram/right ureteroscopic laser lithotripsy/right ureteral stent exchange Findings: multiple stone fragement with one fragment about 4mm Post-Operative Diagnosis: Same as Pre-op Surgeon: Leoncio Nichols Anesthesia: General Specimens Removed: right ureteral stent Drains & Tubes with Location: right 6/24 cm ureteral stent Operative Report Dictated: Yes
[2018-07-17] MEDS ORDERED: oxyCODONE HCL 5 MG TABLET PO PRN (09:43)
[2018-07-17] MEDS ORDERED: ONDANSETRON 4 MG/2 ML VIAL IVPUSH PRN (09:43)
[2018-07-17] MEDS ORDERED: LACTATED RINGERS SOLUTION 1,000 ML IV SCH (09:45)
--- NOTE | 2018-07-17 10:45 | OP ---
DATE OF OPERATION: 07/17/2018 PREOPERATIVE DIAGNOSIS: Right ureteral stone. POSTOPERATIVE DIAGNOSIS: Right ureteral stone PROCEDURE: Cystoscopy, right retrograde pyelogram, right ureteroscopic laser lithotripsy, right ureteral stent exchange. SURGEON: Philomena Mahoney MD ANESTHESIA: General. DESCRIPTION OF PROCEDURE: The patient has a history of a 9-mm right ureteral stone and is status post a stent placed followed by right extracorporeal shock-wave lithotripsy. Because of the suspicion that a large fragment is remaining, the patient is brought in for evaluation with a retrograde pyelogram. The patient understands all risks and benefits. The patient was brought into the operating room, placed in the supine position on the operating room table. General anesthesia and preoperative antibiotics are administered. At this point, the patient was placed in a dorsal lithotomy position and prepped and draped in the usual sterile manner. Cystoscopy was performed, and the right ureteral stent was seen. A wire is placed along the stent to ensure access to the kidney. At this point, a grasping forcep was utilized, and under cystoscopic visualization, the right ureteral stent is removed. Utilizing an open-ended catheter, a right retrograde pyelogram is positive for, which shows a filling defect in the upper ureter. A rigid ureteroscope is then inserted and placed into the ureter; however, due to the anatomy of the patient, access to the upper ureter was limited, and it was decided to change to a flexible ureteroscope in order to avoid the risk of ureteral perforation. At this point, the rigid ureteroscope was removed, and a 2nd wire was placed into the kidney. Using a flexible ureteroscope over the 2nd wire, the wire was introduced into the kidney. This was done under fluoroscopic visualization. At this point, the ureter was investigated, and the 3 stone fragments were noted. One measured about 4 mm with jagged ends. Because of the high risk of obstruction, laser lithotripsy utilizing the Holmium laser was performed on the stone fragment. Fragmentation was successful. All of the stone fragments migrated into the kidney. There were no ureteral stones noted within the ureter. The flexible ureteroscope was removed. At this point, a 6-[place] 24-cm stent was placed over the wire utilizing a Seldinger technique. The string was left on the stent to allow for removal of the stent in 1 week. No complications were noted. DISPOSITION: Patient to recovery room. PHILOMENA MAHONEY M.D. /[id number]
[2018-07-17 11:16] VITALS: TEMP 97.6
[2018-07-17 14:37] VITALS: BP 111/73; PULSE 100
--- NOTE | 2018-07-18 09:53 | PATH ---
Surgical Pathology Report Patient Name: GERALDO CALDERON Med. Rec. #: [id number] /Age/Gender: 1955 (Age: 63) / M Account: [id number] Location: [facility] Taken: 07/17/2018 Received: 07/17/2018 Reported: 07/18/2018 Physicians: Leoncio Nichols Specimen(s) Received RIGHT URETERAL STENT REMOVED Clinical History Calculus of right kidney Final Diagnosis URETERAL STENT, RIGHT REMOVAL: URETERAL STENT. MACROSCOPIC DIAGNOSIS. Electronically Signed Dyan Velasquez M.D. Gross Description Received fresh labeled "right ureteral stent removed," is a 35 cm in length yellow, coiled portion of tubing, consistent with a ureteral stent. No soft tissue is present. No sections are submitted, gross only. /07/17/2018 saudi07/17/2018
== END 2018-07-17 14:15 | disposition home or self-care (01) ==
LOC: JASU-SURG 06:21
PROVIDERS: ATTEND Urology
PROC: 0TF68ZZ Fragmentation in Right Ureter, Via Natural or Artificial Opening Endoscopic (ICD-10-PCS; principal; 2018-07-17 08:00)
PROC: 0T768DZ Dilation of Right Ureter with Intraluminal Device, Via Natural or Artificial Opening Endoscopic (ICD-10-PCS; 2018-07-17 08:00)
PROC: BT1DYZZ Fluoroscopy of Right Kidney, Ureter and Bladder using Other Contrast (ICD-10-PCS; 2018-07-17 08:00)
DX: N20.1 Calculus of ureter (principal)
CPT/HCPCS: 88300-TC; 94760

== ENCOUNTER 2018-07-21 18:35 | Inpatient (IN) | payer OTHER ==
[2018-07-21] MEDS ORDERED: SODIUM CHLORIDE 1,000 ML IV STA ×2 (18:53→20:18)
--- NOTE | 2018-07-21 18:56 | PDOC ---
Rapid Medical Evaluation Time Seen by Provider: 07/21/18 18:51 Medical Evaluation: Allergies Allergy/AdvReac Type Severity Reaction Status Date / Time No Known Allergies Allergy Verified 07/17/18 06:35 Vital Signs Temp Pulse Resp BP Pulse Ox 100.2 F H 134 H 24 H 96/69 99 07/21/18 18:47 07/21/18 18:47 07/21/18 18:47 07/21/18 18:47 07/21/18 18:47 07/21/18 18:54 I have performed a brief in-person evaluation of this patient. The patient presents with a chief complaint of: Fever s/p multiple procedure for renal stones last week. Started on macrobid but hasn't taken yet. Received dose of rocephin today Pertinent physical exam findings:Febrile, tachy and hypotensive I have ordered the following:sepsis order set The patient will proceed to the ED for further evaluation. Discharge Disposition - Diagnosis Fever Qualifiers: Fever type: unspecified Qualified Code(s): R50.9 - Fever, unspecified - Referrals Referrals: Feliberto Castaneda MD [Primary Care Provider] - - Patient Instructions - Post Discharge Activity
--- NOTE | 2018-07-21 19:22 | PDOC ---
Attending Attestation - HPI HPI: 07/21/18 21:39 The patient is a 63 year old male with a significant PMH of right lithotripsy and GERD who presents to the emergency department with intermittent fever s/p right lithotripsy 2 weeks ago. The patient was seen as an outpatient following initial episode and was placed on antibiotics(levaquin) but was not working. The patient was subsequently switched to another antibiotics. The patient reports a high fever of 102 at home today by which he was taking tylenol with intermittent relief. The patient reports some associated chills with his symptoms. He also reports some dysuria. The patient denies any other symptoms or complaints. PCP: López Sotomayor - Physicial Exam PE: 07/21/18 21:39 GENERAL: (+)fever and chills. Awake, alert, and fully oriented, in no acute distress HEAD: No signs of trauma EYES: PERRLA, EOMI, sclera anicteric, conjunctiva clear ENT: Auricles normal inspection, hearing grossly normal, nares patent, oropharynx clear without exudates. Moist mucosa NECK: Normal ROM, supple, no lymphadenopathy, JVD, or masses LUNGS: Breath sounds equal, clear to auscultation bilaterally. No wheezes, and no crackles HEART:(+)tachy, hypotensive. Regular rhythm, normal S1 and S2, no murmurs, rubs or gallops ABDOMEN: Soft, nontender, normoactive bowel sounds. No guarding, no rebound. No masses EXTREMITIES: Normal range of motion, no edema. No clubbing or cyanosis. No cords, erythema, or tenderness NEUROLOGICAL: Cranial nerves II through XII grossly intact. Normal speech, normal gait SKIN: Warm, Dry, normal turgor, no rashes or lesions noted. Documentation prepared by Rony Monahan, acting as medical staff assistant for Gisselle Heard MD. <Rony Monahan - Last Filed: 07/21/18 21:39> - Resident Resident Name: Saba Maddox - ED Attending Attestation I have performed the following: I have examined & evaluated the patient, The case was reviewed & discussed with the resident, I agree w/resident's findings & plan - Medical Decision Making 07/21/18 21:27 Pt comes with urinary sepsis. I saw the patient on 06/11/18 with the original flank pain and kidney stone; he was admitted. At that time on 06/13 a stent was placed and lithotripsy performed. On 06/26/18 an ESWL was done. Then 4 days on 07/17/18 ago patient had a stent exchange and a repeat lithotripsy . Pt says that he took levaquin with no improvement, he continued with pain and fever. Today he went to his urologist and he was given a shot of rocephin. Then placed on bactrim x 1 week. Pt filled the prescription, but he felt worse and had a fever of 104 with rigors and chattering teeth and came to the ER, as per urologist's recommendation. We spoke to Dr. López Fleming who agrees with Vanco and Lynn IV and he will come evaluate the patient tomorrow. No further imaging at this time. 07/21/18 21:32 Pt has 2-3 L NSS in and is looking better. 07/21/18 22:42 repeat lactic acitd is 1.3 Pt is awaiting eval by medicine for admission. <Gisselle Heard - Last Filed: 07/21/18 22:51>
[2018-07-21 19:29] LABS: BASO % 0.3 % (0-2.0); EOS % 0.9 % (0-4.5); HEMATOCRIT 38.5 % (35.4-49); HEMOGLOBIN 13.3 GM/dL (11.7-16.9); LYMPH % 13.8 % (8-40); MCH 26.6 pg (25.7-33.7); MCHC 34.6 g/dl (32.0-35.9); MEAN CELL VOLUME 76.9 fl (80-96); MEAN PLT VOLUME 8.9 fl (7.5-11.1); MONO % 0.8 % (3.8-10.2); NEUT % 84.2 % (42.8-82.8); PLATELET COUNT 216 K/MM3 (134-434); RBC 5.01 M/mm3 (4.00-5.60); RDW 13.7 % (11.9-15.9); WHITE BLOOD COUNT 3.3 K/mm3 (4.0-10.0)
[2018-07-21 19:36] LABS: VENOUS PC02 38.1 mmHg (38-52); VENOUS PH 7.42 (7.32-7.42); VENOUS PO2 32.2 mmHg (28-48)
[2018-07-21] MEDS ORDERED: VANCOMYCIN 1,000 MG in DEXTROSE 5%-WATER - 250 ML IVPB ONE (19:40)
--- NOTE | 2018-07-21 19:40 | PDOC ---
History of Present Illness - General Chief Complaint: SIRS, Suspected/Possible Stated Complaint: FEVER ABD PAIN Time Seen by Provider: 07/21/18 18:51 History Source: Patient Exam Limitations: No Limitations - History of Present Illness Initial Comments: Pt is a 63 yo M, with PMH of kidney stones (recent cystoscopy/lithrotripsy done 06/13/2018 and 07/17/2018) and GERD, who is presenting with R flank pain, fever , and dysuria x2 days. Recent procedures were done at [facility] by Dr. Nichols. Pt states he was taking Levaquin PO at home since 07/17 after the last procedure, but developed fever (Tmax 104), chills, and dysuria on 07/19. According to the pt, he saw Dr. Nichols in clinic today, who provided an IM shot of rocephin and PO Macrobid. The pt had not taken the Macrobid before arrival, as he developed fevers again at home (102). His daughter provided 650 mg PO tylenol at home for fever control, which would relieve the fever temporarily. He has had intermittent hematuria since the procedure. Pt also admits to mild epigastric pain after eating and after taking his PO antibiotics, which was improved with his home Dexilant. Pt denies any headache, vision changes, chest pain, palpitations, SOB, nausea/vomiting, abdominal pain, urinary urgency/ frequency, diarrhea/constipation, or leg/joint swelling. Social: Pt denies any cigarette, alcohol, or drug use. Pt denies any recent travel or sick contacts. Surgical: cystoscopy/R laser lithotripsy Family: no relevant history 07/21/18 21:36 08/09/18 06:02 Past History - Travel Traveled outside of the country in the last 30 days: No Close contact w/someone who was outside of country & ill: No - Past Medical History Allergies/Adverse Reactions: Allergies Allergy/AdvReac Type Severity Reaction Status Date / Time No Known Allergies Allergy Verified 07/21/18 18:55 Home Medications: Ambulatory Orders Acetaminophen [Tylenol] 650 mg PO QID 07/21/18 Ertapenem Sodium - 1 Gram [Invanz (Pre-Docked)] 1 gm IVPB DAILY bag 07/25/18 Picc Line Flush [Picc Line Flush -] 8 ml IVPUSH PRN PRN ml 07/25/18 Diabetes: No GI Disorders: Yes (GERD) HTN: No Hypercholesterolemia: No Kidney Stones: Yes - Surgical History Other Surgical History: s/p R cystoscopy and lithotripsy 06/13/2018 and 07/17/2018 07/21/18 21:18 - Suicide/Smoking/Psychosocial Hx Smoking History: Never smoked Hx Alcohol Use: No Drug/Substance Use Hx: No Substance Use Type: None Hx Substance Use Treatment: No Review of Systems - Review of Systems Able to Perform ROS?: Yes Is the patient limited Faroese proficient: No Constitutional: Yes: Chills, Fever, Weight Stable. No: Diaphoresis, Loss of Appetite, Weakness HEENTM: No: Recent change in vision, Nose Congestion Respiratory: No: Cough, Orthopnea, Shortness of Breath Cardiac (ROS): No: Chest Pain, Edema, Irregular Heart Rate, Lightheadedness, Palpitations, Syncope ABD/GI: Yes: Indigestion. No: Abdominal Distended, Constipated, Diarrhea, Nausea, Poor Appetite, Poor Fluid Intake, Vomiting : Yes: Burning, Dysuria, Hematuria (post lithotripsy), Pain. No: Discharge, Frequency, Flank Pain, Incontinence, Urgency, Testicular Swelling Musculoskeletal: No: Back Pain, Joint Pain Integumentary: No: Erythema, Rash Neurological: No: Headache, Weakness, Unsteady Gait, Dizziness Endocrine: No: Increased Urine, Change in Weight Hematologic/Lymphatic: No: Anemia, Blood Clots, Easy Bleeding, Easy Bruising *Physical Exam - Vital Signs Last Vital Signs Temp Pulse Resp BP Pulse Ox 100.2 F H 134 H 24 H 96/69 99 07/21/18 18:47 07/21/18 18:47 07/21/18 18:47 07/21/18 18:47 07/21/18 18:47 - Physical Exam General Appearance: Yes: Nourished, Appropriately Dressed, Moderate Distress ( Pt febrile, tachycardic, systolic BP in 90s. Can sit and lie comfortably, alert & oriented.), Thin HEENT: positive: EOMI, TISH, Normal ENT Inspection, Normal Voice, Pharynx Normal , Hearing Grossly Normal. negative: Scleral Icterus (R), Scleral Icterus (L), Pharyngeal Erythema, Tonsillar Exudate, Tonsillar Erythema Neck: positive: Tender, Normal Thyroid, Supple. negative: Trachea midline, Rigid, Lymphadenopathy (R), Lymphadenopathy (L) Respiratory/Chest: positive: Lungs Clear, Normal Breath Sounds. negative: Chest Tender, Respiratory Distress, Accessory Muscle Use, Crackles, Wheezing Cardiovascular: positive: Regular Rhythm, S1, S2, Tachycardia. negative: Regular Rate, Edema, JVD, Murmur Vascular Pulses: Carotid (R): 4+, Carotid (L): 4+ Gastrointestinal/Abdominal: positive: Normal Bowel Sounds, Flat, Soft. negative : Tender, Organomegaly, Pulsatile Mass, Distended, Guarding, Rebound Rectal Exam: positive: deferred Lymphatic: negative: Adenopathy, Tenderness Musculoskeletal: positive: Normal Inspection. negative: CVA Tenderness Extremity: positive: Normal Capillary Refill, Normal Inspection, Normal Range of Motion, Pelvis Stable. negative: Tender, Pedal Edema Integumentary: positive: Normal Color, Dry, Warm. negative: Jaundice, Clammy, Diaphoresis, Rash Neurologic: positive: lubricating machine tender II-XII NML intact, Fully Oriented, Alert, Normal Mood/ Affect, Normal Response, Motor Strength 5/5 Moderate Sedation - Procedure Monitoring Vital Signs: Procedure Monitoring Vital Signs Temperature 100.2 F H 07/21/18 18:47 Pulse Rate 134 H 07/21/18 18:47 Respiratory Rate 24 H 07/21/18 18:47 Blood Pressure 96/69 07/21/18 18:47 O2 Sat by Pulse Oximetry (%) 99 07/21/18 18:47 ED Treatment Course - LABORATORY CBC & Chemistry Diagram: 07/25/18 11:45 07/25/18 10:50 - ADDITIONAL ORDERS Additional order review: Laboratory Results 07/21/18 19:25 VBG pH 7.42 POC VBG pCO2 38.1 POC VBG pO2 32.2 Mixed VBG HCO3 24.1 07/21/18 19:25 RBC 5.01 MCV 76.9 L MCHC 34.6 RDW 13.7 MPV 8.9 D Neutrophils % 84.2 H D Lymphocytes % 13.8 D Monocytes % 0.8 L D Eosinophils % 0.9 Basophils % 0.3 Medical Decision Making - Medical Decision Making Pt was seen at bedside, also will be seen by attending Dr. Heard. Pt presenting with R flank pain, fever, and dysuria x2 days. Pt has PMH of kidney stones ( recent cystoscopy/lithrotripsy done 06/13/2018 and 07/17/2018) and GERD. Recent procedures done at [facility] by Dr. Nichols. Pt states he was taking Levaquin PO at home since 07/17 after the last procedure, but developed fever (Tmax 104), chills, and dysuria on 07/19. The pt saw Dr. Nichols in clinic today, who provided an IM shot of rocephin and PO Macrobid. The pt had not taken the Macrobid before arrival, as he developed fevers again at home (102). His daughter provided 650 mg PO tylenol at home for fever control, which would relieve the fever temporarily. He has had intermittent hematuria since the procedure. Pt also admits to mild epigastric pain after eating and taking his PO antibiotics, which was improved with his home Dexilant. Pt denies any headache, vision changes, chest pain, palpitations, SOB, nausea/vomiting, abdominal pain, urinary urgency/frequency, diarrhea/constipation, or leg/joint swelling. Arrival BP 96/69, HR 134, T 100.2, RR 24, O2 99%. PE showed no abdominal tenderness, no rebound, no guarding. No CVA tenderness. Heart and lung sounds clear. Considering sepsis/severe sepsis/septic shock (UTI vs pyelonephritis), trauma 2/ 2 s/p cystoscopy (less likely as pt febrile and UA positive). Ordered work-up including septic work up, UA, urine culture, blood culture. Provided 2L IV NS, 1 g IV Vanc and 3.375 g IV zosyn for improvement of hypotension and antibiotic coverage. Will continue to reassess pt and monitor for symptomatic improvement. First lactic acid 2.8, will re-draw at appropriate time. Spoke with Dr. Nichols who informed that urine culture will be contaminated due to current stent. Agreed with vanc and zosyn administration until new sensitivity is available. 07/21/18 20:24 Repeat BP 96/74 (map stable in 70s). 2L IV NS running in 2 18-gauge lines ( total 3L NS). Hospitalist team paid for admission. 07/21/18 21:06 Repeat lactic 1.3. 07/21/18 22:21 Pt taken for chest x-ray. Admitting team has been nudged in microblog by elizabeth; admitting team has not seen the pt yet or accepted admission. 07/21/18 22:44 Spoke with hospitalist team (Dr. Vallecillo) who has accepted pt for admission. Pt able to lie comfortably. MAP was stable. Awaiting bed upstairs. 07/21/18 23:01 08/09/18 06:07 *DC/Admit/Observation/Transfer Diagnosis at time of Disposition: Severe sepsis, S/P cystoscopy Urinary tract infection Qualifiers: Urinary tract infection type: site unspecified Hematuria presence: with hematuria Qualified Code(s): N39.0 - Urinary tract infection, site not specified - Discharge Dispostion Condition at time of disposition: Improved Decision to Admit order: Yes - Referrals - Patient Instructions - Post Discharge Activity
[2018-07-21 19:41] LABS: INR 1.39 (0.83-1.09); PROTHROMBIN TIME (PATIENT) 16.5 SEC (9.7-13.0)
[2018-07-21] MEDS ORDERED: PIPERACILLIN/TAZOB 3.375 GM 3.375 GM in DEXTROSE 5%-WATER - 50 ML IVPB ONE (19:41)
[2018-07-21 19:45] LABS: URINE APPEARANCE CLOUDY; URINE BILIRUBIN NEGATIVE (<2.0 mg/dL); URINE COLOR AMBER; URINE GLUCOSE (UA) NEGATIVE (NEGATIVE); URINE KETONE NEGATIVE (NEGATIVE); URINE LEUK ESTERASE 3+ (NEGATIVE); URINE NITRITE POSITIVE (NEGATIVE); URINE PROTEIN 2+ (NEGATIVE); URINE UROBILINOGEN NEGATIVE mg/dL (0.2-1.0)
[2018-07-21 19:51] LABS: ALBUMIN 3.2 g/dl (3.4-5.0); ALK PHOS 105 U/L (45-117); ANION GAP 11 MMOL/L (8-16); BILIRUBIN,TOTAL 1.2 mg/dL (0.2-1); BLOOD UREA NITROGEN 23 mg/dL (7-18); CALCIUM 8.6 mg/dL (8.5-10.1); CHLORIDE 101 mmol/L (98-107); CO2 23 mmol/L (21-32); CREATININE 1.2 mg/dL (0.55-1.3); GLUCOSE,RANDOM 111 mg/dL (74-106); POTASSIUM 3.8 mmol/L (3.5-5.1); SGOT/AST 23 U/L (15-37); SGPT/ALT 19 U/L (13-61); SODIUM 134 mmol/L (136-145); URINE BACTERIA MANY /hpf (NONE SEEN); URINE MUCUS MANY
[2018-07-21] MEDS ORDERED: VANCOMYCIN 1 GRAM (PRE-DOCKED) 1,000 MG/250 ML BAG IVPB ONE (20:16)
[2018-07-21] MEDS ORDERED: PIPERACILLIN/TAZOB 3.375 GM 3.375 GM/50 ML BAG IVPB ONE (20:17)
[2018-07-21] MEDS ORDERED: ACETAMINOPHEN 1000 MG/100 ML VIAL (NON FORMULARY) IVPB ONE (20:36)
[2018-07-21] MEDS ORDERED: ACETAMINOPHEN INJECTION 100 ML IVPB ONE (20:43)
[2018-07-22 01:25] VITALS: BMI 23.6
[2018-07-22] MEDS ORDERED: SODIUM CHLORIDE 1,000 ML IV STA ×2 (01:56→09:48)
[2018-07-22] MEDS ORDERED: CEFTRIAXONE 1 GM IM SCH (02:00)
--- NOTE | 2018-07-22 02:07 | HP ---
Admitting History and Physical - Admission Chief Complaint: fever chills, pain and urinary retention History of Present Illness: this is a 63 y/o male without any significant PMH beside renal colic, presented to the hospital with fever and chills patient had a recent lithrotripsy done, patient received levofloxacin as an outpatient, without resolution of his symptoms, the patient was started on macrobid but he didnt take the medication the patient decided to come to the ER for further evaluation. Limitations to Obtaining History: No Limitations - Smoking History Smoking history: Never smoked Have you smoked in the past 12 months: No - Alcohol/Substance Use Hx Alcohol Use: No Home Medications - Allergies Allergies/Adverse Reactions: Allergies Allergy/AdvReac Type Severity Reaction Status Date / Time No Known Allergies Allergy Verified 07/21/18 18:55 - Home Medications Home Medications: Ambulatory Orders levoFLOXacin [Levaquin -] 500 mg PO DAILY #7 tablet 07/17/18 Acetaminophen [Tylenol] 650 mg PO QID 07/21/18 Ceftriaxone [Rocephin -] 1 gm IM ONCE 07/21/18 Review of Systems - Review of Systems Constitutional: reports: No Symptoms Eyes: reports: No Symptoms HENT: reports: No Symptoms Neck: reports: No Symptoms Cardiovascular: reports: No Symptoms Respiratory: reports: No Symptoms Gastrointestinal: reports: No Symptoms Genitourinary: reports: Burning, Dysuria, Flank Pain, Frequency, Pain Musculoskeletal: reports: No Symptoms Integumentary: reports: No Symptoms Neurological: reports: No Symptoms Endocrine: reports: No Symptoms Physical Examination Vital Signs: Vital Signs Temperature 98.3 F 07/22/18 01:00 Pulse Rate 93 H 07/22/18 01:00 Respiratory Rate 20 07/22/18 01:00 Blood Pressure 91/67 07/22/18 01:00 O2 Sat by Pulse Oximetry (%) 97 07/21/18 23:21 Constitutional: Yes: Well Nourished, No Distress, Calm Eyes: Yes: WNL, Conjunctiva Clear, EOM Intact HENT: Yes: WNL, Atraumatic, Normocephalic Neck: Yes: WNL, Supple, Trachea Midline Cardiovascular: Yes: WNL, Regular Rate and Rhythm, S1, S2 Respiratory: Yes: WNL, Regular, CTA Bilaterally Gastrointestinal: Yes: WNL, Normal Bowel Sounds, Soft ...Rectal Exam: Yes: Deferred Musculoskeletal: Yes: WNL Extremities: Yes: WNL Integumentary: Yes: WNL Neurological: Yes: WNL, Alert, Oriented Labs: CBC, BMP 07/21/18 19:25 07/21/18 19:25 Imaging - Results Chest X-ray: Report Reviewed Problem List - Problems (1) Severe sepsis Assessment/Plan: 2/2 to UTI IV FLUIDS resolution of lactic acidosis c/w NS @ 100cc/hr Code(s): A41.9 - SEPSIS, UNSPECIFIED ORGANISM; R65.20 - SEVERE SEPSIS WITHOUT SEPTIC SHOCK (2) Urinary tract infection Assessment/Plan: patient recent procedure (lithotripsy) c/w ceftriaxone 1gm daily acetaminophen 500mg q8hr prn Code(s): N39.0 - URINARY TRACT INFECTION, SITE NOT SPECIFIED Qualifiers: Urinary tract infection type: site unspecified Hematuria presence: with hematuria Qualified Code(s): N39.0 - Urinary tract infection, site not specified; R31.9 - Hematuria, unspecified (3) Kidney stone on right side Assessment/Plan: f/u with urology for further management tamsulosin 0.4mg daily tramadol 50mg q6hr prn Code(s): N20.0 - CALCULUS OF KIDNEY
[2018-07-22] MEDS ORDERED: FLU VACCINE QUAD 60 MCG/0.5 ML (MDV 18-19) IM ONE (02:11)
[2018-07-22] MEDS: ENOXAPARIN NA (PORCINE) 40 MG/0.4 ML DISP.SYRIN SQ SCH (09:24)
--- NOTE | 2018-07-22 09:46 | CON.ID ---
Consult Consult Specialty:: infectious disease Referred by:: dr hansen Reason for Consultation:: positive blood cultures - History of Present Illness Chief Complaint: rigors and high fevers History of Present Illness: other [place] healthy 63 yo man developed symptomatic right nephrolithiasis about 6 weeks back has had multiple procedures including cystoscopy with stent and cheri lithotripsy 08/13, 06/26 he had right ESWL and 07/17 he had right stent change he has had intermittent fevers most recently fever as high as 104 with chills and rigors brought to ed last night by family with fever, lactic acidosis notes some intermittent right flank pain and lower abdominla pain' no nausea or vomiting has received levaquin, bactrim, rocephin and gentamicin over the last several weeks - History Source History Provided By: Patient, Medical Record Limitations to Obtaining History: No Limitations - Alcohol/Substance Use Hx Alcohol Use: No - Smoking History Smoking history: Never smoked Have you smoked in the past 12 months: No - Social History Usual Living Arrangement: With Spouse ADL: Independent Occupation: hotel staff member Place of : Other History of Recent Travel: No ([place] over the summer) Home Medications - Allergies Allergies/Adverse Reactions: Allergies Allergy/AdvReac Type Severity Reaction Status Date / Time No Known Allergies Allergy Verified 07/21/18 18:55 - Home Medications Home Medications: Ambulatory Orders levoFLOXacin [Levaquin -] 500 mg PO DAILY #7 tablet 07/17/18 Acetaminophen [Tylenol] 650 mg PO QID 07/21/18 Ceftriaxone [Rocephin -] 1 gm IM ONCE 07/21/18 Family Disease History - Family Disease History Family Disease History: Other: Son (ms- ) Review of Systems - Review of Systems Constitutional: reports: Chills, Fever Eyes: reports: No Symptoms HENT: reports: No Symptoms Neck: reports: No Symptoms Cardiovascular: reports: No Symptoms Respiratory: reports: No Symptoms Gastrointestinal: reports: Abdominal Pain. denies: Nausea, Vomiting Genitourinary: reports: Flank Pain, Hematuria Physical Exam Vital Signs: Vital Signs Temperature 97.9 F 07/22/18 06:18 Pulse Rate 75 07/22/18 06:18 Respiratory Rate 20 07/22/18 06:18 Blood Pressure 88/60 L 07/22/18 06:18 O2 Sat by Pulse Oximetry (%) 98 12/01/18 00:23 Constitutional: Yes: Well Nourished, No Distress, Calm Eyes: Yes: Conjunctiva Clear HENT: Yes: Atraumatic, Normocephalic Neck: Yes: Supple, Trachea Midline Cardiovascular: Yes: Regular Rate and Rhythm Respiratory: Yes: CTA Bilaterally Gastrointestinal: Yes: Normal Bowel Sounds, Soft ...Rectal Exam: Yes: Deferred Renal/: Yes: Bladder Distention. No: CVA Tenderness - Left, CVA Tenderness - Right Edema: No Psychiatric: Yes: Alert, Oriented Labs: CBC, BMP 07/21/18 19:25 07/21/18 19:25 Microbiology 07/21/18 19:25 Blood - Peripheral Venous Blood Culture - Preliminary Pending Organism 07/21/18 19:25 Blood - Peripheral Venous Blood Culture - Preliminary Pending Organism Problem List - Problems (1) Severe sepsis Code(s): A41.9 - SEPSIS, UNSPECIFIED ORGANISM; R65.20 - SEVERE SEPSIS WITHOUT SEPTIC SHOCK (2) Gram-negative bacteremia Code(s): R78.81 - BACTEREMIA (3) Urinary tract infection Code(s): N39.0 - URINARY TRACT INFECTION, SITE NOT SPECIFIED Qualifiers: Urinary tract infection type: site unspecified Hematuria presence: with hematuria Qualified Code(s): N39.0 - Urinary tract infection, site not specified; R31.9 - Hematuria, unspecified (4) Kidney stone on right side Code(s): N20.0 - CALCULUS OF KIDNEY Assessment/Plan sepsis gram negative bacteremia nephrolithiasis- right hsitory right hydronephrosis has had at least 3 procedures since May- concern for resistant GNR-multiple antibiotcs in last 5 weeks- levaquin, rocephin, bactrim, macrobid fluids meropenem bladder scan renal ultrasound/bladder sonogram- ?urinary retention urology consult
[2018-07-22] MEDS ORDERED: ACETAMINOPHEN 325 MG TABLET (FP) PO SCH (10:00)
--- NOTE | 2018-07-22 11:19 | CONSULT ---
Consult - text type - Consultation Consultation Note: CC: uti HPI: Patient is a 63 year old male with history of ureteral stone on right with right stent s/p lithotripsy. Patient presented to the ER with rigors and fever. Patient with gram negative rods in blood cultures. Patient is clinically stable with moderate hypotension being given fluid bolus. Patient is voiding well. PE 83/58; afeb abd-minimal right CVAT imp urosepsis right ureteral stone s/p stent plan antibiotics as per ID d/c stent at bedside on Tuesday discussed with Dr. Burt 20 minutes spent with patient
[2018-07-22] MEDS ORDERED: PT OWN MED DRAWER 7, Y5N ONE ×2 (12:17→15:28)
[2018-07-22] MEDS: MEROPENEM 1 GM in DEXTROSE 5%-WATER 100 ML IVPB SCH ×2 (12:44→17:12)
--- NOTE | 2018-07-22 12:52 | PN ---
Progress Note, Physician Chief Complaint: AWAKE ALERT EVENTS AND NOTES REVIEWED NAD FEELING BETTER - Current Medication List Current Medications: Active Medications Enoxaparin Sodium (Lovenox -) 40 mg SQ DAILY [facility] Last Admin: 07/22/18 09:24 Dose: 40 mg Meropenem 1 gm/ Dextrose 100 mls @ 200 mls/hr IVPB Q8H-IV [facility] Last Admin: 07/22/18 12:44 Dose: 200 mls/hr Tramadol HCl (Ultram -) 50 mg PO Q6H PRN PRN Reason: PAIN LEVEL 6-10 - Objective Vital Signs: Vital Signs Temperature 98.7 F 07/22/18 10:00 Pulse Rate 73 07/22/18 10:00 Respiratory Rate 20 07/22/18 10:00 Blood Pressure 83/58 L 07/22/18 10:00 O2 Sat by Pulse Oximetry (%) 98 07/22/18 09:00 Constitutional: Yes: No Distress Eyes: Yes: WNL HENT: Yes: WNL Neck: Yes: WNL Cardiovascular: Yes: WNL Respiratory: Yes: WNL Gastrointestinal: Yes: WNL Genitourinary: Yes: WNL Musculoskeletal: Yes: WNL Extremities: Yes: WNL Edema: No Peripheral Pulses WNL: Yes Integumentary: Yes: WNL Wound/Incision: Yes: Clean/Dry Neurological: Yes: WNL ...Motor Strength: WNL Psychiatric: Yes: WNL Labs: CBC, BMP 07/21/18 19:25 07/21/18 19:25 INR, PTT INR 1.39 (0.83-1.09) H 07/21/18 19:25 Problem List - Problems (1) Gram-negative bacteremia Code(s): R78.81 - BACTEREMIA (2) S/P cystoscopy Code(s): Z98.890 - OTHER SPECIFIED POSTPROCEDURAL STATES (3) Severe sepsis Code(s): A41.9 - SEPSIS, UNSPECIFIED ORGANISM; R65.20 - SEVERE SEPSIS WITHOUT SEPTIC SHOCK (4) Urinary tract infection Code(s): N39.0 - URINARY TRACT INFECTION, SITE NOT SPECIFIED Qualifiers: Urinary tract infection type: site unspecified Hematuria presence: with hematuria Qualified Code(s): N39.0 - Urinary tract infection, site not specified; R31.9 - Hematuria, unspecified (5) Hydroureter Code(s): N13.4 - HYDROURETER (6) Kidney stone on right side Code(s): N20.0 - CALCULUS OF KIDNEY (7) Renal insufficiency Code(s): N28.9 - DISORDER OF KIDNEY AND URETER, UNSPECIFIED Assessment/Plan CHECK LABS IVF /ID CONSULT AWAIT CULTURES IV ABX PAIN CONTROL DVT PROPHYLAXIS
--- NOTE | 2018-07-22 17:15 | EKG ---
Test Reason : Blood Pressure : / mmHG Vent. Rate : 113 BPM Atrial Rate : 113 BPM P-R Int : 134 ms QRS Dur : 080 ms QT Int : 336 ms P-R-T Axes : 041 -44 033 degrees QTc Int : 460 ms SINUS TACHYCARDIA POSSIBLE LEFT ATRIAL ENLARGEMENT LEFT AXIS DEVIATION ABNORMAL ECG WHEN COMPARED WITH ECG OF 13-JUN-2018 14:44, NO SIGNIFICANT CHANGE WAS FOUND Confirmed by MD MERISSA, ELIOT ([id number]) on 07/22/2018 5:14:53 PM Referred By: Confirmed By:ELIOT CRAVEN MD
[2018-07-23] MEDS ORDERED: PT OWN MED DRAWER 7, Y5N ONE ×4 (00:38→15:14)
[2018-07-23] MEDS: MEROPENEM 1 GM in DEXTROSE 5%-WATER 100 ML IVPB SCH ×3 (01:15→17:22)
[2018-07-23] MEDS: traMADol HCL 50 MG TABLET PO PRN (06:10)
[2018-07-23 06:34] LABS: HEMATOCRIT 34.9 % (35.4-49); HEMOGLOBIN 11.4 GM/dL (11.7-16.9); MCH 25.3 pg (25.7-33.7); MCHC 32.7 g/dl (32.0-35.9); MEAN CELL VOLUME 77.4 fl (80-96); MEAN PLT VOLUME 9.1 fl (7.5-11.1); PLATELET COUNT 174 K/MM3 (134-434); RBC 4.51 M/mm3 (4.00-5.60); RDW 14.1 % (11.9-15.9); WHITE BLOOD COUNT 9.5 K/mm3 (4.0-10.0)
[2018-07-23 07:33] LABS: ALBUMIN 2.1 g/dl (3.4-5.0); ALK PHOS 78 U/L (45-117); ANION GAP 7 MMOL/L (8-16); BILIRUBIN,TOTAL 0.4 mg/dL (0.2-1); BLOOD UREA NITROGEN 11 mg/dL (7-18); CALCIUM 7.5 mg/dL (8.5-10.1); CHLORIDE 112 mmol/L (98-107); CO2 22 mmol/L (21-32); CREATININE 0.7 mg/dL (0.55-1.3); GLUCOSE,RANDOM 84 mg/dL (74-106); PHOSPHOROUS 2.2 mg/dL (2.5-4.9); POTASSIUM 3.9 mmol/L (3.5-5.1); SGOT/AST 20 U/L (15-37); SGPT/ALT 18 U/L (13-61); SODIUM 142 mmol/L (136-145); TOT PROT 4.4 g/dl (6.4-8.2)
[2018-07-23] MEDS: ENOXAPARIN NA (PORCINE) 40 MG/0.4 ML DISP.SYRIN SQ SCH (09:03)
--- NOTE | 2018-07-23 11:26 | PN ---
Progress Note, Physician Chief Complaint: AWAKE ALERT FEELING BETTER - Current Medication List Current Medications: Active Medications Enoxaparin Sodium (Lovenox -) 40 mg SQ DAILY [facility] Last Admin: 07/23/18 09:03 Dose: 40 mg Meropenem 1 gm/ Dextrose 100 mls @ 200 mls/hr IVPB Q8H-IV [facility] Last Admin: 07/23/18 09:03 Dose: 200 mls/hr Potassium Phos/Sodium Phos (Phos-Nak Packet -) 1 packet PO DAILY [facility] Tramadol HCl (Ultram -) 50 mg PO Q6H PRN PRN Reason: PAIN LEVEL 6-10 Last Admin: 07/23/18 06:10 Dose: 50 mg - Objective Vital Signs: Vital Signs Temperature 97.8 F 07/23/18 09:00 Pulse Rate 81 07/23/18 09:00 Respiratory Rate 20 07/23/18 09:00 Blood Pressure 110/71 07/23/18 09:00 O2 Sat by Pulse Oximetry (%) 98 07/23/18 09:00 Constitutional: Yes: Mild Distress Eyes: Yes: WNL HENT: Yes: WNL Neck: Yes: WNL Cardiovascular: Yes: WNL Respiratory: Yes: WNL Gastrointestinal: Yes: WNL Genitourinary: Yes: WNL Musculoskeletal: Yes: WNL Extremities: Yes: WNL Edema: No Peripheral Pulses WNL: Yes Integumentary: Yes: WNL Wound/Incision: Yes: Clean/Dry Neurological: Yes: WNL ...Motor Strength: WNL Psychiatric: Yes: WNL Labs: CBC, BMP 07/23/18 05:30 07/23/18 05:30 INR, PTT INR 1.39 (0.83-1.09) H 07/21/18 19:25 Problem List - Problems (1) Gram-negative bacteremia Code(s): R78.81 - BACTEREMIA (2) S/P cystoscopy Code(s): Z98.890 - OTHER SPECIFIED POSTPROCEDURAL STATES (3) Severe sepsis Code(s): A41.9 - SEPSIS, UNSPECIFIED ORGANISM; R65.20 - SEVERE SEPSIS WITHOUT SEPTIC SHOCK (4) Urinary tract infection Code(s): N39.0 - URINARY TRACT INFECTION, SITE NOT SPECIFIED Qualifiers: Urinary tract infection type: site unspecified Hematuria presence: with hematuria Qualified Code(s): N39.0 - Urinary tract infection, site not specified; R31.9 - Hematuria, unspecified (5) Hydroureter Code(s): N13.4 - HYDROURETER (6) Kidney stone on right side Code(s): N20.0 - CALCULUS OF KIDNEY (7) Renal insufficiency Code(s): N28.9 - DISORDER OF KIDNEY AND URETER, UNSPECIFIED Assessment/Plan CHECK LABS IVF /ID CONSULT AWAIT CULTURES IV ABX PAIN CONTROL DVT PROPHYLAXIS ORDERING ECHO TO R/O CARDIAC VALVE VEGETATIONS TO REMOVE STENTS TOMORROW BEDSIDE
[2018-07-23] MEDS: NAPH,MB-DB/K PH,MBDB POWDER PACKET PO SCH (12:35)
--- NOTE | 2018-07-23 18:11 | PN ---
Progress Note (short form) - Note Progress Note: feels improved no fevers or rigors still some dysuria Vital Signs Period Temp Pulse Resp BP Sys/Salazar Pulse Ox Last 24 Hr 97.2 F-98.2 F 65-85 19-20 92-110/56-71 98-98 cor-rrr lungs decreased bs at bases abd soft,nt ext no edema CBC, BMP 07/23/18 05:30 07/23/18 05:30 Microbiology 07/21/18 19:25 Urine - Urine Clean Catch Urine Culture - Preliminary Lactose Fermenting Neg Bacilli 07/21/18 19:25 Blood - Peripheral Venous Blood Culture - Preliminary Lactose Fermenting Neg Bacilli 07/21/18 19:25 Blood - Peripheral Venous Blood Culture - Preliminary Lactose Fermenting Neg Bacilli Active Medications Enoxaparin Sodium (Lovenox -) 40 mg SQ DAILY [facility] Last Admin: 07/23/18 09:03 Dose: 40 mg Meropenem 1 gm/ Dextrose 100 mls @ 200 mls/hr IVPB Q8H-IV [facility] Last Admin: 07/23/18 17:22 Dose: 200 mls/hr Potassium Phos/Sodium Phos (Phos-Nak Packet -) 1 packet PO DAILY [facility] Last Admin: 07/23/18 12:35 Dose: 1 packet Tramadol HCl (Ultram -) 50 mg PO Q6H PRN PRN Reason: PAIN LEVEL 6-10 Last Admin: 07/23/18 06:10 Dose: 50 mg a/p gram negative bacteremia continue meropenem clinically improved f/u id and sensi in am repeat blood cultures in am Problem List - Problems (1) Severe sepsis Code(s): A41.9 - SEPSIS, UNSPECIFIED ORGANISM; R65.20 - SEVERE SEPSIS WITHOUT SEPTIC SHOCK (2) Gram-negative bacteremia Code(s): R78.81 - BACTEREMIA (3) Urinary tract infection Code(s): N39.0 - URINARY TRACT INFECTION, SITE NOT SPECIFIED Qualifiers: Urinary tract infection type: site unspecified Hematuria presence: with hematuria Qualified Code(s): N39.0 - Urinary tract infection, site not specified; R31.9 - Hematuria, unspecified (4) Kidney stone on right side Code(s): N20.0 - CALCULUS OF KIDNEY
[2018-07-24] MEDS ORDERED: PT OWN MED DRAWER 7, Y5N ONE ×3 (01:15→17:08)
[2018-07-24] MEDS: MEROPENEM 1 GM in DEXTROSE 5%-WATER 100 ML IVPB SCH ×2 (01:48→09:54)
[2018-07-24] MEDS: NAPH,MB-DB/K PH,MBDB POWDER PACKET PO SCH (09:54)
--- NOTE | 2018-07-24 11:20 | PN ---
Progress Note (short form) - Note Progress Note: no complaints Vital Signs Period Temp Pulse Resp BP Sys/Salazar Pulse Ox Last 24 Hr 97.9 F-98.3 F 64-85 16-19 100-120/66-75 98 cor-rrr lungs clear abd soft,nt ext no edema CBC, BMP 07/23/18 05:30 07/23/18 05:30 Microbiology 07/21/18 19:25 Blood - Peripheral Venous Blood Culture - Final Escherichia Coli Esbl Diesel Bus Mechanic 07/21/18 19:25 Urine - Urine Clean Catch Urine Culture - Final Escherichia Coli Esbl Diesel Bus Mechanic 07/21/18 19:25 Blood - Peripheral Venous Blood Culture - Preliminary Lactose Fermenting Neg Bacilli Current Medications Enoxaparin Sodium (Lovenox -) 40 mg SQ DAILY [facility] Last Admin: 07/23/18 09:03 Dose: 40 mg Ertapenem 1 gm/ Sodium (Chloride) 50 mls @ 100 mls/hr IVPB DAILY [facility] Potassium Phos/Sodium Phos (Phos-Nak Packet -) 1 packet PO DAILY [facility] Last Admin: 07/24/18 09:54 Dose: 1 packet Tramadol HCl (Ultram -) 50 mg PO Q6H PRN PRN Reason: PAIN LEVEL 6-10 Last Admin: 07/23/18 06:10 Dose: 50 mg a/p gram negative bacteremia-ecoli esbl switch to ertapenem will need 14 day course for stent removal today if blood cultures are negative in am 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
[2018-07-24] MEDS ORDERED: PICC LINE 8 ML FLUSH PROTOCOL IVPUSH PRN (14:37)
--- NOTE | 2018-07-24 14:37 | PN ---
Progress Note, Physician Chief Complaint: AWAKE ALERT TO HAVE URETRAL STENT REMOVED TODAY - Current Medication List Current Medications: Active Medications Enoxaparin Sodium (Lovenox -) 40 mg SQ DAILY [facility] Last Admin: 07/23/18 09:03 Dose: 40 mg Ertapenem 1 gm/ Sodium (Chloride) 50 mls @ 100 mls/hr IVPB DAILY [facility] Potassium Phos/Sodium Phos (Phos-Nak Packet -) 1 packet PO DAILY [facility] Last Admin: 07/24/18 09:54 Dose: 1 packet Tramadol HCl (Ultram -) 50 mg PO Q6H PRN PRN Reason: PAIN LEVEL 6-10 Last Admin: 07/23/18 06:10 Dose: 50 mg - Objective Vital Signs: Vital Signs Temperature 98.3 F 07/24/18 09:00 Pulse Rate 64 07/24/18 09:00 Respiratory Rate 18 07/24/18 09:00 Blood Pressure 108/67 07/24/18 09:00 O2 Sat by Pulse Oximetry (%) 95 07/24/18 09:00 Constitutional: Yes: Mild Distress Eyes: Yes: WNL HENT: Yes: WNL Neck: Yes: WNL Cardiovascular: Yes: WNL Respiratory: Yes: WNL Gastrointestinal: Yes: WNL Genitourinary: Yes: WNL Musculoskeletal: Yes: WNL Extremities: Yes: WNL Edema: No Peripheral Pulses WNL: Yes Integumentary: Yes: WNL Wound/Incision: Yes: Clean/Dry Neurological: Yes: WNL ...Motor Strength: WNL Psychiatric: Yes: WNL Labs: CBC, BMP 07/23/18 05:30 07/23/18 05:30 INR, PTT INR 1.39 (0.83-1.09) H 07/21/18 19:25 Problem List - Problems (1) Gram-negative bacteremia Code(s): R78.81 - BACTEREMIA (2) S/P cystoscopy Code(s): Z98.890 - OTHER SPECIFIED POSTPROCEDURAL STATES (3) Severe sepsis Code(s): A41.9 - SEPSIS, UNSPECIFIED ORGANISM; R65.20 - SEVERE SEPSIS WITHOUT SEPTIC SHOCK (4) Urinary tract infection Code(s): N39.0 - URINARY TRACT INFECTION, SITE NOT SPECIFIED Qualifiers: Urinary tract infection type: site unspecified Hematuria presence: with hematuria Qualified Code(s): N39.0 - Urinary tract infection, site not specified; R31.9 - Hematuria, unspecified (5) Hydroureter Code(s): N13.4 - HYDROURETER (6) Kidney stone on right side Code(s): N20.0 - CALCULUS OF KIDNEY (7) Renal insufficiency Code(s): N28.9 - DISORDER OF KIDNEY AND URETER, UNSPECIFIED Assessment/Plan CHECK LABS IVF /ID CONSULT AWAIT CULTURES IV ABX FOR 14 DAYS PICC LINE ORDERED DC PLANNING FOR HOME INFUSION IV ABX PAIN CONTROL DVT PROPHYLAXIS ORDERING ECHO TO R/O CARDIAC VALVE VEGETATIONS TO REMOVE STENTS TODAY BEDSIDE
--- NOTE | 2018-07-24 14:54 | CONSULT ---
Consult - text type - Consultation Consultation Note: CC: gram negative urosepsis HPI: Patient is s/p right ureteral stent after ureteroscopic laser lithotripsy. Patient is comfortable without complaints. PE vss; afeb abd-soft, non-tender; no CVAT labs/cultures/renal and bladder sonogram reviewed right ureteral stent d/c'ed at bedside utilizing urethral string imp urosepsis right renal/ureteral stone s/p stent plan antibiotics as per ID 25 minutes devoted to patient care
[2018-07-24] MEDS ORDERED: ERTAPENEM SODIUM 1 GM/50 ML PRE-DOCKED IVPB SCH (18:00)
[2018-07-24] MEDS: ERTAPENEM SODIUM 1 GM in SODIUM CHLORIDE 50 ML IVPB SCH (18:21)
[2018-07-25] MEDS: traMADol HCL 50 MG TABLET PO PRN ×2 (01:38→19:23)
--- NOTE | 2018-07-25 09:52 | PN ---
Progress Note, Physician History of Present Illness: comfortable this am no complaints - Current Medication List Current Medications: Active Medications Enoxaparin Sodium (Lovenox -) 40 mg SQ DAILY [facility] Last Admin: 07/23/18 09:03 Dose: 40 mg IV Flush (Picc Line Flush) 8 ml IVPUSH PRN PRN PRN Reason: Protocol Ertapenem 1 gm/ Sodium (Chloride) 50 mls @ 100 mls/hr IVPB DAILY [facility] Last Admin: 07/24/18 18:21 Dose: 100 mls/hr Potassium Phos/Sodium Phos (Phos-Nak Packet -) 1 packet PO DAILY [facility] Last Admin: 07/24/18 09:54 Dose: 1 packet Tramadol HCl (Ultram -) 50 mg PO Q6H PRN PRN Reason: PAIN LEVEL 6-10 Last Admin: 07/25/18 01:38 Dose: 50 mg - Objective Vital Signs: Vital Signs Temperature 98 F 07/25/18 06:00 Pulse Rate 74 07/25/18 06:00 Respiratory Rate 20 07/25/18 06:00 Blood Pressure 102/62 07/25/18 06:00 O2 Sat by Pulse Oximetry (%) 96 07/24/18 21:00 Cardiovascular: Yes: Regular Rate and Rhythm Respiratory: Yes: Regular, CTA Bilaterally Gastrointestinal: Yes: Normal Bowel Sounds, Soft Labs: CBC, BMP 07/23/18 05:30 07/23/18 05:30 INR, PTT INR 1.39 (0.83-1.09) H 07/21/18 19:25 Problem List - Problems (1) Gram-negative bacteremia Assessment/Plan: Microbiology 07/24/18 05:30 Blood - Peripheral Venous Blood Culture - Preliminary NO GROWTH OBTAINED AFTER 24 HOURS, INCUBATION TO CONTINUE FOR 4 DAYS. 07/24/18 06:00 Blood - Peripheral Venous Blood Culture - Preliminary NO GROWTH OBTAINED AFTER 24 HOURS, INCUBATION TO CONTINUE FOR 4 DAYS. 07/21/18 19:25 Blood - Peripheral Venous Blood Culture - Final Escherichia Coli Esbl Family Member Caretaker 07/21/18 19:25 Urine - Urine Clean Catch Urine Culture - Final Escherichia Coli Esbl Family Member Caretaker 07/21/18 19:25 Blood - Peripheral Venous Blood Culture - Preliminary Lactose Fermenting Neg Bacilli Iv abx per id Etrapenem to complete 14 days picc line Code(s): R78.81 - BACTEREMIA (2) Kidney stone on right side Assessment/Plan: s/p lithotripsy Code(s): N20.0 - CALCULUS OF KIDNEY
[2018-07-25] MEDS ORDERED: PT OWN MED DRAWER 7, Y5N ONE (11:07)
[2018-07-25] MEDS: ERTAPENEM SODIUM 1 GM in SODIUM CHLORIDE 50 ML IVPB SCH (11:20)
[2018-07-25] MEDS: NAPH,MB-DB/K PH,MBDB POWDER PACKET PO SCH (11:20)
[2018-07-25 12:00] LABS: ALBUMIN 2.9 g/dl (3.4-5.0); ALK PHOS 128 U/L (45-117); ANION GAP 8 MMOL/L (8-16); BILIRUBIN,TOTAL 0.4 mg/dL (0.2-1); BLOOD UREA NITROGEN 11 mg/dL (7-18); CALCIUM 8.6 mg/dL (8.5-10.1); CHLORIDE 104 mmol/L (98-107); CO2 27 mmol/L (21-32); CREATININE 0.9 mg/dL (0.55-1.3); GLUCOSE,RANDOM 113 mg/dL (74-106); POTASSIUM 4.5 mmol/L (3.5-5.1); SGOT/AST 36 U/L (15-37); SGPT/ALT 47 U/L (13-61); SODIUM 138 mmol/L (136-145); TOT PROT 6.1 g/dl (6.4-8.2)
[2018-07-25 12:57] LABS: BASO % 1.1 % (0-2.0); EOS % 4.3 % (0-4.5); HEMOGLOBIN 13.6 GM/dL (11.7-16.9); LYMPH % 24.9 % (8-40); MCH 26.1 pg (25.7-33.7); MEAN CELL VOLUME 76.9 fl (80-96); MEAN PLT VOLUME 9.7 fl (7.5-11.1); MONO % 12.8 % (3.8-10.2); NEUT % 56.9 % (42.8-82.8); PLATELET COUNT 300 K/MM3 (134-434); RDW 13.9 % (11.9-15.9); WHITE BLOOD COUNT 8.8 K/mm3 (4.0-10.0)
[2018-07-25 15:32] VITALS: BP 120/72; PULSE 84; TEMP 98.4
--- NOTE | 2018-07-25 16:14 | PATH ---
Surgical Pathology Report Patient Name: GERALDO CALDERON Med. Rec. #: [id number] /Age/Gender: 1955 (Age: 63) / M Account: [id number] Location: [facility] MED/SURG Taken: 07/24/2018 Received: 07/24/2018 Reported: 07/25/2018 Physicians: Leoncio Castaneda M.D. Specimen(s) Received RIGHT URETERAL STENT Clinical History Had lithotripsy right ureteral stent by Dr. López Fleming 07/24/18 Dr. 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 Electronically Signed Min Gunter M.D. Gross Description Received fresh labeled "right ureteral stent," is a 35 cm in length yellow-green, coiled portion of tubing, consistent with a ureteral stent. No soft tissue is present. No sections are submitted, gross only. 07/24/201807/24/2018
--- NOTE | 2018-07-25 18:06 | PN ---
Progress Note (short form) - Note Progress Note: no complaints had picc line placed Vital Signs Period Temp Pulse Resp BP Sys/Salazar Pulse Ox Last 24 Hr 97.7 F-98.7 F 74-98 18-20 96-125/62-92 96-98 cor-rrr lungs clear abd soft,nt ext no edema CBC, BMP 07/25/18 11:45 07/25/18 10:50 Microbiology 07/24/18 05:30 Blood - Peripheral Venous Blood Culture - Preliminary NO GROWTH OBTAINED AFTER 24 HOURS, INCUBATION TO CONTINUE FOR 4 DAYS. 07/24/18 06:00 Blood - Peripheral Venous Blood Culture - Preliminary NO GROWTH OBTAINED AFTER 24 HOURS, INCUBATION TO CONTINUE FOR 4 DAYS. 07/21/18 19:25 Blood - Peripheral Venous Blood Culture - Final Escherichia Coli Esbl Embroidery Patternmaker 07/21/18 19:25 Urine - Urine Clean Catch Urine Culture - Final Escherichia Coli Esbl Embroidery Patternmaker 07/21/18 19:25 Blood - Peripheral Venous Blood Culture - Preliminary Lactose Fermenting Neg Bacilli Current Medications Enoxaparin Sodium (Lovenox -) 40 mg SQ DAILY [facility] Last Admin: 07/23/18 09:03 Dose: 40 mg IV Flush (Picc Line Flush) 8 ml IVPUSH PRN PRN PRN Reason: Protocol Ertapenem 1 gm/ Sodium (Chloride) 50 mls @ 100 mls/hr IVPB DAILY [facility] Last Admin: 07/25/18 11:20 Dose: 100 mls/hr Potassium Phos/Sodium Phos (Phos-Nak Packet -) 1 packet PO DAILY [facility] Last Admin: 07/25/18 11:20 Dose: 1 packet Tramadol HCl (Ultram -) 50 mg PO Q6H PRN PRN Reason: PAIN LEVEL 6-10 Last Admin: 07/25/18 01:38 Dose: 50 mg a/p gram negative bacteremia-ecoli esbl-day #4 antibiotics will need 14 day course-10 more days d/w patient Problem List - Problems (1) Severe sepsis Code(s): A41.9 - SEPSIS, UNSPECIFIED ORGANISM; R65.20 - SEVERE SEPSIS WITHOUT SEPTIC SHOCK (2) Gram-negative bacteremia Code(s): R78.81 - BACTEREMIA (3) Urinary tract infection Code(s): N39.0 - URINARY TRACT INFECTION, SITE NOT SPECIFIED Qualifiers: Urinary tract infection type: site unspecified Hematuria presence: with hematuria Qualified Code(s): N39.0 - Urinary tract infection, site not specified; R31.9 - Hematuria, unspecified (4) Kidney stone on right side Code(s): N20.0 - CALCULUS OF KIDNEY
== END 2018-07-25 19:55 | disposition home or self-care (01) | DRG 872 ==
LOC: JER 18:35 → JERBED 21:14 → J4W 07-22 01:01 → J8W 07-24 19:04
PROVIDERS: ADMIT Family Medicine; ATTEND Family Medicine
PROC: 0TP97DZ Removal of Intraluminal Device from Ureter, Via Natural or Artificial Opening (ICD-10-PCS; 2018-07-24)
PROC: 05HB33Z Insertion of Infusion Device into Right Basilic Vein, Percutaneous Approach (ICD-10-PCS; principal; 2018-07-25)
PROC: B54MZZA Ultrasonography of Right Upper Extremity Veins, Guidance (ICD-10-PCS; 2018-07-25)
DX: A41.51 Sepsis due to Escherichia coli [E. coli] (principal); N39.0 Urinary tract infection, site not specified; T81.44XA Sepsis following a procedure, initial encounter; E87.2 Acidosis; R65.20 Severe sepsis without septic shock; Y83.8 Other surgical procedures as the cause of abnormal reaction of the patient, or of later complication, without mention of misadventure at the time of the procedure; K21.9 Gastro-esophageal reflux disease without esophagitis; B96.29 Other Escherichia coli [E. coli] as the cause of diseases classified elsewhere; N20.0 Calculus of kidney
CPT/HCPCS: 36415; 36569; 71045-TC-FY; 76775-TC; 76856-TC; 77001-TC-FY; 80053; 81003; 81015; 82803; 83605; 83735; 84100; 84484; 85025; 85027; 85610; 85730; 87040; 87086; 87186; 88300-TC; 90688; 93005; 93010; 99285-25; C1751; G0008; J0131; J7030